=== PATIENT | female | born 1930 | race Caucasian/White ===

== ENCOUNTER 2018-08-10 08:28 | Inpatient (IN) ==
--- NOTE | 2018-08-10 08:59 | PROVIDER DOCUMENTATION ---
HPI-Respiratory General - General Chief Complaint: Shortness of Breath Stated Complaint: SOB Time Seen by Provider: 08/10/18 08:37 Source: patient Allergies/Adverse Reactions: Patient Allergies Allergy/AdvReac Type Severity Reaction Status Date / Time No Known Allergies Allergy Verified 08/10/18 08:35 Home Medications: Home Medication List Medication Instructions Recorded Confirmed Last Taken Type Amlodipine Besylate/Benazepril 1 each PO DAILY 09/10/14 08/10/18 06/06/17 History [Amlodipine-Benazepril 10-40 mg] 1 Fluoxetine [Prozac] 20 mg PO DAILY 09/10/14 08/10/18 06/06/17 History 20 Acetaminophen [Tylenol] 500 mg PO Q6H PRN PRN 06/08/17 08/10/18 06/12/17 17:00 History 500 Cholecalciferol (Vitamin D3) 1,000 unit PO DAILY 06/08/17 06/13/17 06/06/17 History [Vitamin D3] 1000 Carbidopa/Levodopa [Carbidopa-Levo 1 ea PO DAILY 08/10/18 08/10/18 Unknown History 25-100 Tab] Hydrocodone/APAP 5 mg/325 mg 1 ea PO Q8-12H PRN PRN 08/10/18 08/10/18 Unknown History [Laurens-5] Mirabegron [Myrbetriq] 25 mg PO DAILY 08/10/18 08/10/18 Unknown History - History of Present Illness-Resp Nature of Presenting Problem: 88yof present to ER with c/o SOB onset Tuesday. Pt reports she went to see her Parkinson's doctor on Tuesday and noticed she had to stop and lean on the wall a few times. Pt was here 2 weeks ago for fx ribs on the right. Pt reports nonproductive cough. Denies fever. Quality of Pain: reports: aching Timing: reports: intermittent (with movement) Cough Quality/Degree: reports: dry cough Associated Symptoms: reports: cough, short of breath. denies: fever/chills, flu-like symptoms, sore throat, wheezing Review of Systems - Adult - REVIEW OF SYSTEMS - ADULT Constitutional: reports: no symptoms reported. denies: chills, fever Eyes: reports: no symptoms reported Ears, Nose, Mouth & Throat: reports: no symptoms reported Cardiovascular: reports: no symptoms reported. denies: chest pain Respiratory: reports: see HPI, cough, shortness of breath Gastrointestinal: reports: no symptoms reported. denies: abdominal pain, diarrhea, nausea, vomiting Genitourinary: reports: no symptoms reported Musculoskeletal: reports: no symptoms reported Integumentary: reports: no symptoms reported Neurological: reports: no symptoms reported Psychiatric: reports: no symptoms reported Endocrine: reports: no symptoms reported Hematologic/Lymphatic: reports: no symptoms reported Allergic/Immunologic: reports: no symptoms reported All Other Systems: Reviewed and Negative Past History - Adult - PAST MEDICAL HISTORY-ADULT Review of Records: reports: Old Records Reviewed, Nursing Assessment Review, Medications Reviewed Major Childhood Illnesses: reports: denies history Cardiovascular: reports: HTN Respiratory: reports: denies history Gastrointestinal: reports: denies history Obstetrical/Gynecological: reports: denies history Genitourinary: reports: denies history Musculoskeletal: reports: denies history Neurological: reports: Parkinson's Psychiatric: reports: depression Endocrine/Immune: reports: denies history Other Conditions: reports: denies history - PRIOR SURGERIES/PROCEDURES Surgical/Procedure History: reports: orthopedic (extremity), other - PRIOR HOSPITALIZATIONS Prior Hospitalizations: reports: for other non-related - IMMUNIZATION STATUS Childhood Immunizations: See Nurse Assessment Flu Vaccine: See Nurse Assessment - FAMILY HISTORY Family History: reviewed, not pertinent Physical Exam-General - PHYSICAL EXAM-ADULT Initial Vital Signs Reviewed: Yes - CONSTITUTIONAL General Appearance: appears well, alert, no apparent distress - HEAD, EARS, NOSE, MOUTH & THROAT HENMT: moist mucous membranes, normal ENT inspection - NECK Neck: full range of motion, supple, normal inspection - RESPIRATORY Respiratory: no respiratory distress, no accessory muscle use, rhonchi (bilateral), other (tenderness to right lateral ribs) - CARDIOVASCULAR Cardiovascular: no edema, tachycardia - GASTROINTESTINAL (ABDOMEN) Abdominal Exam: normal bowel sounds, non tender, soft - LYMPHATIC Lymphatic: no adenopathy - MUSCULOSKELETAL Back Exam: normal inspection Extremity: normal range of motion, normal inspection - SKIN Integumentary: normal color, warm/dry - NEUROLOGIC Neurologic: grossly normal - PSYCHIATRIC Psych/Mental Status: normal mood/affect, normal thought content, normal thought process - HEART Score HEART Score: History: Slightly Suspicious HEART Score: ECG: Normal HEART Score: Age: > or = 65 Years HEART Score: Risk Factors for Atherosclerotic Disease: 1 or 2 Risk Factors HEART Score: Troponin: < or = Normal Limit Total HEART Score:: 3 Progress - PLAN OF CARE/RESULTS Progress/Plan/Lab Results: Vital Signs - 8 hr 08/10/18 08:31 08/10/18 08:59 Temperature 99.1 F Pulse Rate 116 H 103 H Respiratory Rate 18 23 Blood Pressure 129/55 143/85 O2 Sat by Pulse Oximetry 96 93 L Laboratory Results - last 24 hr 08/10/18 08/10/18 08/10/18 08:55 08:55 08:55 WBC 12.39 H RBC 3.78 L Hgb 10.8 L Hct 33.9 L MCV 89.7 MCH 28.6 MCHC 31.9 L RDW Std Deviation 14.0 Plt Count 221 MPV 10.3 Immature Gran % (Auto) 0.3 Neut % (Auto) 85.3 H Lymph % (Auto) 6.0 L [place] % (Auto) 8.1 Eos % (Auto) 0.1 Baso % (Auto) 0.2 Immature Gran # (Auto) 0.04 Neut # (Auto) 10.58 H Lymph # (Auto) 0.74 L [place] # (Auto) 1.00 H Eos # (Auto) 0.01 Baso # (Auto) 0.02 Segmented Neutrophils 82 H Lymphocytes 12 L Monocytes 6 Anisocytosis 1+ D-Dimer, Quantitative 4.33 H Sodium 137 Potassium 4.2 Chloride 100 Carbon Dioxide 22 L Anion Gap 15 BUN 24 H Creatinine 1.0 H Estimated GFR/1.73 m2 52 BUN/Creatinine Ratio 24 Glucose 145 H Calculated Osmolality 280 Calcium 8.5 L Total Bilirubin 1.20 H AST 27 ALT 35 Alkaline Phosphatase 104 Creatine Kinase 182 H Creatine Kinase Index 1.7 CK-MB (CK-2) 3.01 Troponin T Total Protein 7.3 Albumin 3.9 Globulin 3.0 Albumin/Globulin Ratio 1.0 Plasma Lactate Urine Source Urine Color Urine Clarity Urine pH Ur Specific [place] Urine Protein Urine Ketones Urine Blood Urine Nitrite Urine Bilirubin Urine Urobilinogen Urine Microscopic RBC Urine WBC Urine Microscopic WBC Ur Epithelial Cells Urine Crystals Urine Bacteria Urine Casts Urine Yeast Urine Glucose 08/10/18 08/10/18 08/10/18 08:55 09:20 10:15 WBC RBC Hgb Hct MCV MCH MCHC RDW Std Deviation Plt Count MPV Immature Gran % (Auto) Neut % (Auto) Lymph % (Auto) [place] % (Auto) Eos % (Auto) Baso % (Auto) Immature Gran # (Auto) Neut # (Auto) Lymph # (Auto) [place] # (Auto) Eos # (Auto) Baso # (Auto) Segmented Neutrophils Lymphocytes Monocytes Anisocytosis D-Dimer, Quantitative Sodium Potassium Chloride Carbon Dioxide Anion Gap BUN Creatinine Estimated GFR/1.73 m2 BUN/Creatinine Ratio Glucose Calculated Osmolality Calcium Total Bilirubin AST ALT Alkaline Phosphatase Creatine Kinase Creatine Kinase Index CK-MB (CK-2) Troponin T 0.057 Total Protein Albumin Globulin Albumin/Globulin Ratio Plasma Lactate 1.6 Urine Source CLEAN CATCH Urine Color LAWANDA Urine Clarity SL. CLOUDY A Urine pH 5.0 Ur Specific [place] 1.020 Urine Protein 1+(30 mg/dL) A Urine Ketones 1+(Small) A Urine Blood 1+ A Urine Nitrite NEGATIVE Urine Bilirubin 1+ A Urine Urobilinogen 4 Urine Microscopic RBC <10 Urine WBC 2+ A Urine Microscopic WBC TNTC A Ur Epithelial Cells >10 A Urine Crystals NONE SEEN Urine Bacteria 4+ Urine Casts NONE SEEN Urine Yeast NONE SEEN Urine Glucose NEGATIVE Orders Category Date Time Status Admit - [facility] Routine AdmDCTranf 08/10/18 11:32 Active Activity - Up Ad Lelo ORDERED Care 08/10/18 11:32 Active Vital Signs Order ROUTINE Care 08/10/18 11:32 Active CHEST-2 VIEWS [RAD] Stat Exams 08/10/18 08:[address] ANGIOGRM PULMONARY ARTERIES [CT] Stat Exams 08/10/18 10:16 Completed RIBS BILATERAL W/O PA [RAD] Stat Exams 08/10/18 08:39 Completed BLOOD CULTURE [BLDCUL] Stat Lab 08/10/18 09:51 Ordered CBC WITH DIFF [HEME] Stat Lab 08/10/18 08:55 Completed CK PROFILE [SP CHEM] Stat Lab 08/10/18 08:55 Completed COMPREHENSIVE METABOLIC PANEL [CHEM] Stat Lab 08/10/18 08:55 Completed D-DIMER [COAG] Stat Lab 08/10/18 08:55 Completed LACTATE, PLASMA [CHEM] Stat Lab 08/10/18 10:15 Completed TROPONIN T Stat Lab 08/10/18 08:55 Completed URINE CULTURE [RM] Routine Lab 08/10/18 09:43 Ordered ua [URINALYSIS PL W/POSS RFLX CULT] [URINALYSIS] Stat Lab 08/10/18 09:20 Completed CefTRIAXONE [Rocephin] 1 gm Med 08/10/18 09:50 Discontinued 0.9% Sodium Chloride Inj [Ns] 50 ml IV NOW Oxygen Device Routine Oth 08/10/18 11:32 Active EKG [EKG] Stat Ther 08/10/18 08:41 Draft Transfer/Admit Order [TRANSFER] Routine Transfer 08/10/18 10:53 Completed Result Diagrams: 08/10/18 08:55 08/10/18 08:55 - REASSESSMENT Reassessment #1 Time Reassessed: 10:10 (Pt and family member updated of results and plan for admission. Pt agrees with plan. O2 sat 92% on RA. RN made aware to keep sat > 92%. ) - XRAY 1 XRAY Study: Chest Impression: See EMR Report (There is stable mild cardiomegaly. There has been development of ill-defined bilateral perihilar infiltrates, most prominent on the right. There is a small right pleural effusion. There is no pneumothorax identified. IMPRESSION: Stable mild cardiomegaly. Development of ill-defined bilateral perihilar infiltrates, most prominent on the right. Small right pleural effusion. No evidence of pneumothorax. Electronically signed by [employer]edia 08/10/2018 9:45 AM) 2 XRAY: Right XRAY Study: Ribs Impression: See EMR Report (There are fractures of the lateral right fifth, sixth, and seventh ribs. There is no left rib fracture identified. IMPRESSION: Fractures of lateral right fifth, sixth, and seventh ribs. Electronically signed by [employer] 08/10/2018 9:44 AM) - CONSULTS/PCP/HOSPITALIST Notification #1 *Consult/PCP/Hospitalist*: Hospitalist, Dr Payne Time Discussed: 10:07 Consult Disposition: Admit #2 Consult: Dr Henao Time Discussed: 10:16 (Earlene's patient) Consult Disposition: Admit Departure - Departure Date of Disposition Decision: 08/10/18 Time of Disposition Decision: 10:11 DIAGNOSIS: SOB (shortness of breath), Elevated d-dimer Pneumonia Qualifiers: Pneumonia type: due to unspecified organism Laterality: bilateral Lung location: unspecified part of lung Qualified Code(s): J18.9 - Pneumonia, unspecified organism Disposition: ADMITTED INPATIENT 09 Certified Medical Emergency: Emergent Condition: Fair - Critical Care Note This patient required my direct & personal management of CC.: No Attestation - Physician/ FRANCO Attestation Patient care was provided by Advanced Practice Provider:: Yes Advanced Practice Provider:: Duong Gifford Advanced Practice Provider documentation review:: The Mid-level provider documentation, treatment plan and medical decision making was reviewed by the physician who agrees with all treatment and medical decision making by the MLP. The physician spent face to face time with patient:: No Advanced Practice Provider documentation review:: Supervising physician onsite and consulted in the evaluation and care of this patient. The physician did not have a face to face encounter with the patient.
[2018-08-10 09:23] LABS: ALBUMIN 3.9 g/dL (3.5-5.0); CALCIUM 8.5 mg/dL (8.8-10.2); POTASSIUM 4.2 mmol/L (3.5-5.1); TOTAL BILIRUBIN 1.2 mg/dL (0.20-1.00); TOTAL PROTEIN 7.3 g/dL (6.3-8.3)
[2018-08-10 09:33] LABS: BASO# 0.02 X1000 (0.0-0.2); BASO% 0.2 % (0.0-0.8); EOS# 0.01 X1000 (0.0-0.7); EOS% 0.1 % (0.0-10.0); HEMATOCRIT 33.9 % (37.0-47.0); HEMOGLOBIN 10.8 g/dL (12.0-16.0); IMM GRAN# 0.04 X1000 (0.0-0.04); IMM GRAN% 0.3 % (0.0-0.5); LYMPH# 0.74 X1000 (1.2-3.4); MCH 28.6 PG (27-31); MCHC 31.9 g/dL (33-37); MCV 89.7 FL (81-99); MONO% 8.1 % (1.7-9.3); MPV 10.3 FL (7.4-10.4); NEUT# 10.58 X1000 (1.4-6.5); NEUT% 85.3 % (42.2-75.2); PLT 221 X1000 (130-400); RBC 3.78 XMIL (4.2-5.4); WBC 12.39 X1000 (4.8-10.8)
[2018-08-10 09:34] LABS: LYMPHS 12 % (21-51); MONO 6 % (1-9); SEGS 82 % (42-75)
[2018-08-10 09:35] LABS: ANISOCYTOSIS 1+
[2018-08-10 09:39] LABS: CK INDEX 1.7 (0.0-2.5); CK-MB 3.01 ng/mL (0.0-5.0)
[2018-08-10 09:40] LABS: BILIRUBIN URINE 1+ (NEGATIVE); BLOOD URINE 1+ (NEGATIVE); CLARITY SL. CLOUDY (CLEAR); COLOR AMBER; GLUCOSE URINE NEGATIVE (NEGATIVE); KETONE URINE 1+(Small) mg/dL (NEGATIVE); LEUKOCYTES URINE 2+ (NEGATIVE); NITRITE URINE NEGATIVE (NEGATIVE); PROTEIN URINE 1+(30 mg/dL) mg/dL (NEGATIVE); UROBILINOGEN URINE 4 mg/dL
[2018-08-10 09:42] LABS: URINE EPITHELIAL CELLS >10 /HPF (<10); URINE RBC <10 /HPF (<10); URINE WBC TNTC /HPF (<10)
[2018-08-10 09:43] LABS: URINE BACTERIA 4+ /HFP; URINE CAST NONE SEEN /LPF; URINE CRYSTAL NONE SEEN /HPF; URINE SOURCE CLEAN CATCH; URINE YEAST NONE SEEN /HPF
--- NOTE | 2018-08-10 09:46 | Diag Imaging Result Doc PS360 ---
EXAM: RIBS BILATERAL W/O PA - 08/10/2018 HISTORY: sob TECHNIQUE: Bilateral RIBS six views COMPARISON: 07/20/2018 right RIBS FINDINGS: There are fractures of the lateral right fifth, sixth, and seventh ribs. There is no left rib fracture identified. IMPRESSION: Fractures of lateral right fifth, sixth, and seventh ribs. Electronically signed by Carlos Pride 08/10/2018 9:44 AM
--- NOTE | 2018-08-10 09:48 | Diag Imaging Result Doc PS360 ---
EXAM: CHEST-2 VIEWS - 08/10/2018 HISTORY: sob TECHNIQUE: Chest two views COMPARISON: 07/20/2018 one view chest FINDINGS: There is stable mild cardiomegaly. There has been development of ill-defined bilateral perihilar infiltrates, most prominent on the right. There is a small right pleural effusion. There is no pneumothorax identified. IMPRESSION: Stable mild cardiomegaly. Development of ill-defined bilateral perihilar infiltrates, most prominent on the right. Small right pleural effusion. No evidence of pneumothorax. Electronically signed by Carlos Pride 08/10/2018 9:45 AM
[2018-08-10] MEDS ORDERED: ROCEPHIN 1 GM in NS 50 ML IV ONE (09:50)
--- NOTE | 2018-08-10 10:27 | ED EKG INTERP ---
This chart was entered by Paty Church Scribe, acting as scribe for Olivia Marie MD. EKG Interpretation - EKG Time of EKG reading by physician:: 10:18 EKG Read and Signed by:: Olivia Marie EKG Interpretation (*Must complete 3 of following elements*): Abnormal Rate: 108 Rhythm: sinus arrhythmia Comments: nonspecific ST and T wave abnormality. Attestation - Physician/ FRANCO Attestation Patient care was provided by Advanced Practice Provider:: Yes Advanced Practice Provider:: Duong Gifford Advanced Practice Provider documentation review:: The Mid-level provider documentation, treatment plan and medical decision making was reviewed by the physician who agrees with all treatment and medical decision making by the MLP. The physician spent face to face time with patient:: No Advanced Practice Provider documentation review:: Supervising physician onsite and consulted in the evaluation and care of this patient. The physician did not have a face to face encounter with the patient. This chart was documented by the indicated scribe, (Paty Church Scribe) and accurately reflects the services I performed and decisions made by me, Olivia Marie MD, as attested by the provider's signature.
--- NOTE | 2018-08-10 10:35 | EKG Report ---
Test Performed on : 08/10/2018 10:18:24 AM Test Reason : CP Blood Pressure : / mmHG Vent. Rate : 108 BPM Atrial Rate : 122 BPM P-R Int : 000 ms QRS Dur : 086 ms QT Int : 340 ms P-R-T Axes : 000 014 067 degrees QTc Int : 455 ms Atrial fibrillation. with rapid ventricular response. Nonspecific ST and T wave abnormality Abnormal ECG When compared with ECG of 08-JUN-2017 11:12, Atrial fibrillation. has replaced Junctional rhythm. ST now depressed in Anterior leads Nonspecific T wave abnormality, worse in Anterior leads Unconfirmed Result
--- NOTE | 2018-08-10 11:19 | Diag Imaging Result Doc PS360 ---
EXAM: CT ANGIOGRM PULMONARY ARTERIES - 08/10/2018 HISTORY: sob, elevated ddimer TECHNIQUE: CT angiogram pulmonary arteries with intravenous contrast. Axial, 2-D coronal MIP, and 3-D MIP images are obtained. COMPARISON: None. FINDINGS: There are no filling defects identified in the pulmonary arteries. There is no indication of aortic dissection. There is mild cardiomegaly. There are patchy bilateral infiltrates which are most prominent in the perihilar regions. There is a small right pleural effusion. There is no pneumothorax identified. There are subacute fractures of the anterior lateral right sixth, seventh, and eighth ribs with early healing. There are acute fractures of the lateral right ninth and 10th ribs. IMPRESSION: No evidence of pulmonary embolism. Mild cardiomegaly. Patchy bilateral infiltrates which are most prominent at the perihilar regions. These may relate to pulmonary edema, pneumonia, or possibly pulmonary hemorrhage. Small right pleural effusion. Subacute fractures of anterior lateral right sixth, seventh, and eighth ribs. Acute fractures of lateral right ninth and 10th ribs. No pneumothorax. Electronically signed by Carlos Pride 08/10/2018 11:16 AM
[2018-08-10] MEDS ORDERED: PNEUMOVAX 23 IM ONE (12:26)
[2018-08-10] MEDS ORDERED: TYLENOL PO PRN ×2 (12:43→12:44)
[2018-08-10] MEDS ORDERED: ZOFRAN IV PRN (12:44)
[2018-08-10] MEDS: ZITHROMAX PO SCH (13:31)
--- NOTE | 2018-08-10 19:53 | HISTORY AND PHYSICAL ---
CHIEF COMPLAINT: Shortness of breath. HISTORY OF PRESENT ILLNESS: The patient is an 88-year-old female who has a known history of parkinsonism and frequent falls. She presented to [facility] with increased work of breathing and shortness of breath over the past couple of days. She states that she recently went to see her Parkinson doctor and noted that instead of being able to walk into the office, she had stopped several times and leaned against the wall to be able to breathe. She fell approximately 2 weeks ago and had some rib fractures. She notes that it hurts when she takes a deep breath. REVIEW OF SYSTEMS: The patient denies any current production to her cough. Denies any radiation of her pain. She states she is having some pain with deep breathing. Denies any fevers or chills. The patient has been short of breath, and notes that the shortness of breath worsens with activity. It does improve somewhat when she rests. She denies any dysuria, frequency or urgency. Denies hesitancy, polyuria or polydipsia. Denies any skin rashes, weight loss or weight gain. PAST MEDICAL HISTORY: Hypertension, Parkinson disease, depression. FAMILY HISTORY: No family history of parkinsonism. SOCIAL HISTORY: The patient lives at home, does not smoke or drink. PHYSICAL EXAMINATION: VITAL SIGNS: Temperature 99 degrees, pulse 103 to 116, respiratory rate 18 to 23, BP 143/85. Saturation 98% on room air. GENERAL: The patient is in no current respiratory distress while she is lying in the bed. She is not using accessory muscles. HEENT: Normocephalic. NECK: Supple. CARDIOVASCULAR: Regular rate. CHEST: Decreased breath sounds but equal bilaterally. No current wheezing. ABDOMEN: Soft, nondistended. EXTREMITIES: Moves all extremities. NEUROLOGIC: No changes. ASSESSMENT: 1. Elevated D-dimer at 4.3, with a normal CTA. 2. Elevated bilirubin. 3. Recent rib fractures. 4. Shortness of breath. 5. Parkinson disease. 6. Probable urinary tract infection. 7. Hyperglycemia. 8. Bilateral pneumonia. PLAN: We will place the patient in the hospital, continue her on antibiotics, breathing treatments and oxygen. Restart her home medications. I certainly expect that her recent rib fractures have created difficulty taking deep breaths, which has caused a large portion of her current symptoms and has led to pneumonia. We will continue to follow. Further orders as needed. cc: Juan Carlos Hull MD
[2018-08-11] MEDS ORDERED: BENAZEPRIL PO SCH (09:00)
[2018-08-11] MEDS ORDERED: AMLODIPINE BESYLATE PO SCH (09:00)
[2018-08-11] MEDS ORDERED: [UNRECOGNIZED DRUG - OTHER] PO SCH (09:00)
[2018-08-11] MEDS: SINEMET 25/100 PO SCH (09:08)
[2018-08-11] MEDS: MYRBETRIQ E.R. PO SCH (09:08)
[2018-08-11] MEDS: ZITHROMAX PO SCH (09:08)
[2018-08-11] MEDS: NORVASC PO SCH (09:08)
[2018-08-11] MEDS: PROZAC PO SCH (09:08)
[2018-08-11] MEDS: LOTENSIN PO SCH (09:08)
[2018-08-11] MEDS ORDERED: NORCO-5 PO PRN (09:19)
[2018-08-11] MEDS: ROCEPHIN 1 GM in NS 50 ML IV SCH (11:41)
--- NOTE | 2018-08-11 11:59 | PROGRESS NOTE ---
DATE: 08/11/2018 SUBJECTIVE: Patient notes that overall she is feeling a little bit better although she really has not been out of bed. States she is still having some shortness of breath, but no coughing. No fevers. No chills. Denies any real urinary pain, however, states she has had increased frequency over the past couple of days and thought that her bladder medication just was not working. PHYSICAL EXAMINATION: Vital Signs: Reviewed. She is awake and alert. She is in no current respiratory distress. Temperature 97.8 degrees, pulse 111, respiratory 18, BP 144/85, and saturation 96% on 2 L. General: Patient is very pleasant to talk with. HEENT: Normocephalic. Neck: Supple. Cardiovascular: Regular rate. Chest: Clear. Abdomen: Soft. Extremities: Moves all extremities. Neurologic: No changes. Skin: Warm and dry. No rashes. ASSESSMENT: 1. Urinary tract infection. 2. Parkinson disease. 3. Frequent falls. 4. Bilateral rib fractures. 5. Acute fatigue and shortness of breath likely secondary to her urinary tract infection. PLAN: Continue patient in the hospital. We will continue to follow. Place her on antibiotics and oxygen. Get physical therapy involved. Further orders as needed. cc: Juan Carlos Hull MD
[2018-08-12 07:12] LABS: HEMATOCRIT 31.7 % (37.0-47.0); HEMOGLOBIN 10.1 g/dL (12.0-16.0); MCH 28.6 PG (27-31); MCHC 31.9 g/dL (33-37); MCV 89.8 FL (81-99); MPV 10.5 FL (7.4-10.4); RBC 3.53 XMIL (4.2-5.4); RDW 13.8 % (11.5-14.5); WBC 11.51 X1000 (4.8-10.8)
[2018-08-12 07:36] LABS: AGAP 15; ALBUMIN 3.3 g/dL (3.5-5.0); ALKALINE PHOSPHATASE 103 U/L (32-104); BUN 24 mg/dL (8-22); CALCIUM 8.4 mg/dL (8.8-10.2); CHLORIDE 105 mmol/L (98-107); COSMO 291; CREATININE 0.7 mg/dL (0.5-0.9); ESTIMATED GFR > 60; GLUCOSE 139 mg/dL (70-104); GOT 14 U/L (10-30); GPT 25 U/L (10-36); MAGNESIUM 2.1 mg/dL (1.5-2.7); POTASSIUM 3.9 mmol/L (3.5-5.1); SODIUM 143 mmol/L (136-145); TCO2 23 mmol/L (25-35)
--- NOTE | 2018-08-12 08:38 | PROGRESS NOTE ---
DATE: 08/12/2018 SUBJECTIVE: The patient notes overall she is feeling a little bit better, but she still has not really been out of bed. Still having fatigue and tiredness. She is tired, sitting on the side of the bed. OBJECTIVE: Vital Signs: On physical, vital signs reviewed and stable. She is awake, alert. She is in no current respiratory distress. Temperature 98 degrees, pulse 116, respiratory 20, BP 149/63. General: Patient is in no respiratory distress. HEENT: Normocephalic. Neck: Supple. Cardiovascular: Regular rate. Chest: Clear, nonlabored. No wheezing, no crackles. Abdomen: Soft, nondistended. Extremities: Moves all extremities. ASSESSMENT: 1. Adult generalized failure to thrive with generalized weakness, most likely secondary to urinary tract infection and Parkinson. 2. Parkinson. 3. Urinary tract infection. 4. Elevated bilirubin of undetermined origin. 5. Elevated D-dimer, most likely secondary to her recent rib fracture. 6. Recent rib fracture. 7. Hyperglycemia. 8. Bilateral pneumonia. PLAN: We will continue patient in the hospital, continue antibiotics, oxygen. We will get physical therapy involved. Further orders as needed. cc: Juan Carlos Hull MD
[2018-08-12] MEDS: NORVASC PO SCH (09:53)
[2018-08-12] MEDS: ZITHROMAX PO SCH (09:53)
[2018-08-12] MEDS: MYRBETRIQ E.R. PO SCH (09:53)
[2018-08-12] MEDS: LOTENSIN PO SCH (09:53)
[2018-08-12] MEDS: SINEMET 25/100 PO SCH (09:53)
[2018-08-12] MEDS: PROZAC PO SCH (09:53)
[2018-08-12] MEDS: ROCEPHIN 1 GM in NS 50 ML IV SCH (12:05)
[2018-08-12] MEDS ORDERED: TEARISOL OPH SOLUTION BOTH EYES PRN (15:56)
[2018-08-12] MEDS: DUONEB (A & A) INH PRN (21:29)
[2018-08-13] MEDS: ZITHROMAX PO SCH (08:13)
[2018-08-13] MEDS: LOTENSIN PO SCH (08:13)
[2018-08-13] MEDS: SINEMET 25/100 PO SCH (08:14)
[2018-08-13] MEDS: PROZAC PO SCH (08:14)
[2018-08-13] MEDS: NORVASC PO SCH (08:14)
[2018-08-13] MEDS: MYRBETRIQ E.R. PO SCH (08:14)
[2018-08-13] MEDS: ROCEPHIN 1 GM in NS 50 ML IV SCH (10:34)
[2018-08-13] MEDS: DUONEB (A & A) INH PRN ×4 (12:11→19:34)
--- NOTE | 2018-08-13 23:00 | PROGRESS NOTE ---
DATE: 08/13/2018 SUBJECTIVE: Patient notes that she is feeling better. Still very weak and fatigued. Still having difficulty getting out of bed. Denies any fevers or chills. PHYSICAL EXAMINATION: Vital Signs: Reviewed. Temperature 97.6 degrees, pulse "19," respiratory 20, BP 153/76. General: She is awake, alert. She is in no current respiratory distress. HEENT: Normocephalic. Neck: Supple. Cardiovascular: Regular rate. Chest: Clear. Abdomen: Soft. Extremities: Moves all extremities. Neurologic: No changes. Skin: Warm, dry. No rashes. ASSESSMENT: 1. Nausea vomiting, seems to have resolved. 2. Generalized weakness. 3. Recent rib fractures. 4. Shortness of breath. 5. Bilateral pneumonia. 6. Parkinson disease. 7. Frequent falls. PLAN: We will continue antibiotics. Continue to follow. Get Physical Therapy involved. Hopefully can discharge home when ambulating. cc: Juan Carlos Hull MD
[2018-08-14] MEDS ORDERED: XOPENEX NEB INH PRN (08:06)
[2018-08-14] MEDS: NORVASC PO SCH (08:52)
[2018-08-14] MEDS: ZITHROMAX PO SCH (08:52)
[2018-08-14] MEDS: MYRBETRIQ E.R. PO SCH (08:53)
[2018-08-14] MEDS: LOTENSIN PO SCH (08:53)
[2018-08-14] MEDS: PROZAC PO SCH (08:53)
[2018-08-14] MEDS: SINEMET 25/100 PO SCH (08:53)
[2018-08-14] MEDS: ROCEPHIN 1 GM in NS 50 ML IV SCH (10:41)
--- NOTE | 2018-08-14 19:36 | PROGRESS NOTE ---
DATE: 08/14/2018 SUBJECTIVE: Patient notes she is feeling better. She is still very tired, fatigued, and has not really been out of bed. Physical Therapy hopefully will come today. PHYSICAL EXAMINATION: Vital Signs: Reviewed. Temperature 98 degrees, pulse 101, respiratory rate 20, BP 125/84. General: Patient is awake, alert, currently in no respiratory distress. HEENT: Normocephalic. Neck: Supple. Cardiovascular: Regular rate. Chest: Clear. Abdomen: Soft. Neurologic: No focal changes. ASSESSMENT: 1. Frequent falls. 2. Pneumonia, improved. 3. Elevated D-dimer. 4. Shortness of breath. 5. Others. PLAN: Will continue the patient in the hospital, continue physical therapy, and hopefully home if she can ambulate. cc: Juan Carlos Hull MD
[2018-08-15 07:54] VITALS: BP 142/76
[2018-08-15] MEDS: MYRBETRIQ E.R. PO SCH (09:28)
[2018-08-15] MEDS: NORVASC PO SCH (09:28)
[2018-08-15] MEDS: ZITHROMAX PO SCH (09:28)
[2018-08-15] MEDS: SINEMET 25/100 PO SCH (09:29)
[2018-08-15] MEDS: LOTENSIN PO SCH (09:29)
[2018-08-15] MEDS: PROZAC PO SCH (09:29)
--- NOTE | 2018-08-16 05:42 | DISCHARGE SUMMARY ---
ADMISSION DATE: 08/11/2018 DISCHARGE DATE: 08/15/2018 DISCHARGE DIAGNOSES: 1. Pneumonia, improved. 2. Elevated D-dimer with negative workup. 3. Shortness of breath, improved. 4. Frequent falls. 5. Parkinson's likely causing her frequent falls. CONSULTATIONS: None. PROCEDURES: None. BRIEF HOSPITAL COURSE: The patient is an 88-year-old female who was admitted to the hospital, treated in the usual fashion, placed on antibiotics due to her frequent falls. Thankfully she had an uneventful hospital course. On discharge she is awake and alert. She is in no distress and overall is feeling better. The patient's hospital course was prolonged secondary to her generalized weakness and frequent falls. On discharge she is able to ambulate with minimal assistance. The patient declined rehabilitation. DISPOSITION: The patient will be discharged home with home health, thus she has declined rehab. She will follow up in the office in 1 week to recheck the chest x-ray. We will continue antibiotics at home as well as physical therapy. cc: Juan Carlos Hull MD
== END 2018-08-15 10:15 | disposition home health service (06) | DRG 871 ==
LOC: P.MEDSURG 08:28 → P.ED 08:28 → P.MEDSURG 11:25
PROVIDERS: ADMIT Family Medicine; ATTEND Family Medicine
CPT/HCPCS: 71020; 71046; 71110; 71275; 80053; 81001; 82550; 82553; 83605; 83735; 84443; 84484; 85025; 85027; 85379; 87040; 87088; 93005; 94640; 94761; 94799; 96374; 97162; 97530; 99285; A9270; J0696; Q9967

== ENCOUNTER 2019-02-20 13:43 | Inpatient (IN) ==
--- NOTE | 2019-02-20 14:08 | EKG Report ---
Test Performed on : 02/20/2019 2:02:57 PM Test Reason : AMS Blood Pressure : / mmHG Vent. Rate : 091 BPM Atrial Rate : 091 BPM P-R Int : 172 ms QRS Dur : 092 ms QT Int : 384 ms P-R-T Axes : 086 000 047 degrees QTc Int : 472 ms Sinus rhythm. with occasional premature ventricular complexes. and fusion complexes Incomplete right bundle branch block Borderline ECG When compared with ECG of 10-AUG-2018 10:18, Sinus rhythm. has replaced Atrial fibrillation. Nonspecific T wave abnormality no longer evident in Anterior leads Unconfirmed Result
[2019-02-20 14:17] LABS: INR 1.2; PROTIME 15.4 Seconds (11.0-16.0)
[2019-02-20 14:18] LABS: PTT 27.7 Seconds (22.3-41.8)
[2019-02-20 14:20] LABS: BASO# 0.04 X1000 (0.0-0.2); BASO% 0.2 % (0.0-0.8); EOS% 0.6 % (0.0-10.0); HEMOGLOBIN 12.4 g/dL (12.0-16.0); IMM GRAN# 0.03 X1000 (0.0-0.04); IMM GRAN% 0.2 % (0.0-0.5); LYMPH# 1.02 X1000 (1.2-3.4); MCH 29.6 PG (27-31); MCHC 32.6 g/dL (33-37); MCV 90.7 FL (81-99); MONO% 4.7 % (1.7-9.3); MPV 10.1 FL (7.4-10.4); NEUT% 88.3 % (42.2-75.2); PLT 223 X1000 (130-400); RBC 4.19 XMIL (4.2-5.4); RDW 13.7 % (11.5-14.5); WBC 16.89 X1000 (4.8-10.8)
--- NOTE | 2019-02-20 14:29 | Diag Imaging Result Doc PS360 ---
EXAM: CT HEAD W/O CONTRAST INDICATION: Head injury TECHNIQUE: This exam was performed using automated exposure control, adjustment of mA or kV according to patient size, and/or use of iterative reconstruction technique. COMPARISON: 09/14/2018 FINDINGS: There is patchy low attenuation in the periventricular and subcortical white matter suggesting microangiopathy, stable. There is no definite acute infarct given the limited sensitivity of CT versus MRI. There is no discrete intracranial mass, mass effect, or intracranial hemorrhage. The surrounding soft tissues and bony structures are essentially unremarkable. The calvaria is intact. IMPRESSION: Stable chronic appearing white matter changes but no definite acute intracranial pathology. Electronically signed by Connor Hall 02/20/2019 2:27 PM
--- NOTE | 2019-02-20 14:34 | Diag Imaging Result Doc PS360 ---
CHEST-PORTABLE - 02/20/2019 INDICATION: AMS COMPARISON: 08/10/2018 FINDINGS: Stable cardiomegaly and pulmonary vascular congestion. There are some patchy infiltrates or areas of atelectasis in the lung bases. No definite pulmonary edema. No pneumothorax or significant pleural effusion. IMPRESSION: Nonspecific findings. Electronically signed by Jr Landers 02/20/2019 2:32 PM
--- NOTE | 2019-02-20 14:35 | Diag Imaging Result Doc PS360 ---
LUMBAR SPINE 2-VIEWS - 02/20/2019 INDICATION: FALL/BACK PAIN TECHNIQUE: COMPARISON: None FINDINGS: Alignment is anatomic. There appears to be disc space fusion at L5-S1. No fracture or subluxation. Vertebral body heights are overall preserved. There is advanced multilevel disc degeneration, diffusely throughout the thoracolumbar spine. There is significant vascular disease with calcification of the aorta and its branches. No visible aneurysm. IMPRESSION: Advanced spondylosis. Electronically signed by Jr Landers 02/20/2019 2:33 PM
[2019-02-20 14:52] LABS: URINE SOURCE CLEAN CATCH
[2019-02-20 15:02] LABS: BILIRUBIN URINE NEGATIVE (NEGATIVE); BLOOD URINE MODERATE (NEGATIVE); COLOR YELLOW; GLUCOSE URINE NEGATIVE (NEGATIVE); KETONE URINE 40 mg/dL (NEGATIVE); LEUKOCYTES URINE LARGE (NEGATIVE); NITRITE URINE NEGATIVE (NEGATIVE); PH URINE 6.5; PROTEIN URINE 30 mg/dL (NEGATIVE); SP GRAVITY URINE 1.018; TURBIDITY URINE HAZY (CLEAR); UROBILINOGEN URINE NORMAL (NORMAL)
[2019-02-20 15:04] LABS: UR EPITHELIAL CELLS <10 /HPF (<10); URINE BACTERIA 1+ /HPF; URINE RBC <10 /HPF (<10); URINE WBC TNTC /HPF (<10)
[2019-02-20 15:18] LABS: ALB/GLOB RATIO 1.7; ALBUMIN 4.7 g/dL (3.5-5.0); CALCIUM 9.3 mg/dL (8.8-10.2); POTASSIUM 3.8 mmol/L (3.5-5.1); TOTAL BILIRUBIN 1.81 mg/dL (0.20-1.00); TOTAL PROTEIN 7.5 g/dL (6.3-8.3)
[2019-02-20] MEDS ORDERED: ROCEPHIN 1 GM in NS 50 ML IV ONE (15:37)
--- NOTE | 2019-02-20 15:43 | PROVIDER DOCUMENTATION ---
HPI-General Adult - General Chief Complaint: Altered Mental Status Stated Complaint: FELL 4 X SINCE TUESDAY Time Seen by Provider: 02/20/19 15:16 Source: patient, family (son at bedside) Allergies/Adverse Reactions: Patient Allergies Allergy/AdvReac Type Severity Reaction Status Date / Time No Known Allergies Allergy Verified 02/20/19 15:30 Home Medications: Home Medication List Medication Instructions Recorded Confirmed Last Taken Type Amlodipine Besylate/Benazepril 1 each PO DAILY 09/10/14 02/20/19 09/22/18 05:00 History [Amlodipine-Benazepril 10-40 mg] Carbidopa/Levodopa [Carbidopa-Levo 1 ea PO DAILY 08/10/18 02/20/19 09/21/18 08:00 History 25-100 Tab] Hydrocodone/APAP 5 mg/325 mg 1 ea PO Q6H PRN PRN #10 tab 09/14/18 02/20/19 08:00 Rx [[place]-5] Aspirin 81 mg PO DAILY 09/20/18 02/20/19 09/19/18 08:00 History Oxybutynin Chloride 5 mg PO DAILY 02/20/19 02/20/19 Unknown History - History of Present Illness -Gen Adult Nature of Presenting Problems: 88 YO F pmh for parkinson's brought in by son for recurrent falls, 4x in 3 days. pt states she hit her head when she fell on yesterday. She was laying in the puddle in the street until [employer] came to her home. On today, she had fallen again until [employer] came to her house again. She currently lives alone. Her son states he thinks she has a UTI. Pt without dysuria, but states she has urinary frequency, which is not abnormal for her. She has pain on her back and with her knees. She denies any other complaints. She states her Parkinson's is what makes her fall. She denies any dizziness or LOC. Son states pt was having hallucinations of family members this morning. Location of Pain/Injury: reports: head, back, lower extremity Pain Radiation: reports: no radiation Quality of Pain: reports: aching Severity: reports: mild Onset/Duration: reports: 3 days ago Timing: reports: still present, improving Associated Symptoms: denies: dizziness, nausea, rash, seizure Similar Symptoms Previously?: Yes Recently seen or treated by another doctor?: No Review of Systems - Adult - REVIEW OF SYSTEMS - ADULT Constitutional: denies: chills, fever Eyes: reports: no symptoms reported Ears, Nose, Mouth & Throat: reports: no symptoms reported Cardiovascular: denies: chest pain, edema Respiratory: reports: no symptoms reported Gastrointestinal: reports: no symptoms reported Genitourinary: reports: see HPI, frequency. denies: dysuria Musculoskeletal: reports: back pain, joint pain Integumentary: reports: no symptoms reported Neurological: reports: dizziness/vertigo. denies: syncope Past History - Adult - PAST MEDICAL HISTORY-ADULT Review of Records: reports: Old Records Reviewed, Medications Reviewed Major Childhood Illnesses: reports: denies history Cardiovascular: reports: HTN Respiratory: reports: denies history Gastrointestinal: reports: denies history Obstetrical/Gynecological: reports: denies history Genitourinary: reports: denies history Musculoskeletal: reports: denies history Neurological: reports: Parkinson's Psychiatric: reports: depression Endocrine/Immune: reports: denies history Other Conditions: reports: denies history - PRIOR SURGERIES/PROCEDURES Surgical/Procedure History: reports: orthopedic (extremity), other - PRIOR HOSPITALIZATIONS Prior Hospitalizations: reports: for other non-related - IMMUNIZATION STATUS Childhood Immunizations: See Nurse Assessment Flu Vaccine: See Nurse Assessment - FAMILY HISTORY Family History: reviewed, not pertinent - SOCIAL HISTORY Smoking: non-smoker Substance Use: denies Living Situation: alone Physical Exam-General - PHYSICAL EXAM-ADULT Initial Vital Signs Reviewed: Yes - CONSTITUTIONAL General Appearance: appears well, alert, no apparent distress - HEAD, EARS, NOSE, MOUTH & THROAT HENMT: normocephalic/atraumatic, moist mucous membranes - NECK Neck: non-tender, full range of motion, supple, normal inspection - RESPIRATORY Respiratory: lungs clear, normal breath sounds - CARDIOVASCULAR Cardiovascular: regular rate, rhythm - GASTROINTESTINAL (ABDOMEN) Abdominal Exam: non tender, soft. negative: distended, guarding, rebound - MUSCULOSKELETAL Back Exam: ecchymosis (to right thoracic region) Extremity: normal range of motion, pelvis stable. negative: deformity - NEUROLOGIC Neurologic: grossly normal - PSYCHIATRIC Psych/Mental Status: normal mood/affect, normal thought content, oriented x 3 Progress - PLAN OF CARE/RESULTS Progress/Plan/Lab Results: Vital Signs - 8 hr 02/20/19 13:48 Temperature 98.4 F Pulse Rate 92 H Respiratory Rate 18 Blood Pressure 178/72 O2 Sat by Pulse Oximetry 94 L Laboratory Results - last 24 hr 02/20/19 02/20/19 02/20/19 13:56 13:56 13:56 WBC 16.89 H RBC 4.19 L Hgb 12.4 Hct 38.0 MCV 90.7 MCH 29.6 MCHC 32.6 L RDW Std Deviation 13.7 Plt Count 223 MPV 10.1 Immature Gran % (Auto) 0.2 Neut % (Auto) 88.3 H Lymph % (Auto) 6.0 L Cook % (Auto) 4.7 Eos % (Auto) 0.6 Baso % (Auto) 0.2 Immature Gran # (Auto) 0.03 Neut # (Auto) 14.90 H Lymph # (Auto) 1.02 L Cook # (Auto) 0.80 H Eos # (Auto) 0.10 Baso # (Auto) 0.04 PT INR PTT (Actin FS) Sodium 142 Potassium 3.8 Chloride 102 Carbon Dioxide 21 L Anion Gap 19 BUN 22 Creatinine 1.0 H Estimated GFR/1.73 m2 52 BUN/Creatinine Ratio 22 Glucose 110 H POC Glucose Calculated Osmolality 287 Calcium 9.3 Total Bilirubin 1.81 H AST 50 H ALT 29 Alkaline Phosphatase 89 Creatine Kinase 1857 H Troponin T Total Protein 7.5 Albumin 4.7 Globulin 2.8 Albumin/Globulin Ratio 1.7 Plasma Lactate Urine Source Urine Color Urine Turbidity Urine pH Ur Specific [place] Urine Protein Ur Glucose (Stick) Ur Ketones (Stick) Urine Blood Urine Nitrite Urine Bilirubin Urobilinogen Dipstick Urine Leukocytes Urine WBC (Auto) Urine RBC (Auto) U Epithel Cells (Auto) Urine Bacteria (Auto) Plasma/Serum Ethyl Alc 02/20/19 02/20/19 02/20/19 13:56 13:56 13:56 WBC RBC Hgb Hct MCV MCH MCHC RDW Std Deviation Plt Count MPV Immature Gran % (Auto) Neut % (Auto) Lymph % (Auto) Cook % (Auto) Eos % (Auto) Baso % (Auto) Immature Gran # (Auto) Neut # (Auto) Lymph # (Auto) Cook # (Auto) Eos # (Auto) Baso # (Auto) PT 15.4 INR 1.20 PTT (Actin FS) 27.7 Sodium Potassium Chloride Carbon Dioxide Anion Gap BUN Creatinine Estimated GFR/1.73 m2 BUN/Creatinine Ratio Glucose POC Glucose Calculated Osmolality Calcium Total Bilirubin AST ALT Alkaline Phosphatase Creatine Kinase Troponin T 0.033 Total Protein Albumin Globulin Albumin/Globulin Ratio Plasma Lactate 2.2 Urine Source Urine Color Urine Turbidity Urine pH Ur Specific [place] Urine Protein Ur Glucose (Stick) Ur Ketones (Stick) Urine Blood Urine Nitrite Urine Bilirubin Urobilinogen Dipstick Urine Leukocytes Urine WBC (Auto) Urine RBC (Auto) U Epithel Cells (Auto) Urine Bacteria (Auto) Plasma/Serum Ethyl Alc 02/20/19 02/20/19 13:58 14:44 WBC RBC Hgb Hct MCV MCH MCHC RDW Std Deviation Plt Count MPV Immature Gran % (Auto) Neut % (Auto) Lymph % (Auto) Cook % (Auto) Eos % (Auto) Baso % (Auto) Immature Gran # (Auto) Neut # (Auto) Lymph # (Auto) Cook # (Auto) Eos # (Auto) Baso # (Auto) PT INR PTT (Actin FS) Sodium Potassium Chloride Carbon Dioxide Anion Gap BUN Creatinine Estimated GFR/1.73 m2 BUN/Creatinine Ratio Glucose POC Glucose 99 Calculated Osmolality Calcium Total Bilirubin AST ALT Alkaline Phosphatase Creatine Kinase Troponin T Total Protein Albumin Globulin Albumin/Globulin Ratio Plasma Lactate Urine Source CLEAN CATCH Urine Color YELLOW Urine Turbidity HAZY Urine pH 6.5 Ur Specific [place] 1.018 Urine Protein 30 A Ur Glucose (Stick) NEGATIVE Ur Ketones (Stick) 40 A Urine Blood MODERATE A Urine Nitrite NEGATIVE Urine Bilirubin NEGATIVE Urobilinogen Dipstick NORMAL Urine Leukocytes LARGE A Urine WBC (Auto) TNTC A Urine RBC (Auto) <10 U Epithel Cells (Auto) <10 Urine Bacteria (Auto) 1+ Plasma/Serum Ethyl Alc Orders Category Date Time Status Cardiac Monitoring DIRECTED Care 02/20/19 13:57 Active Finger Stick Blood Sugar (ED) DIRECTED Care 02/20/19 13:57 Completed Oxygen Therapy- ED Nursing DIRECTED Care 02/20/19 13:57 Active Saline Loc NOW Care 02/20/19 13:57 Active CHEST-PORTABLE [RAD] Stat Exams 02/20/19 13:[address] HEAD W/O CONTRAST [CT] Stat Exams 02/20/19 13:57 Completed LUMBAR SPINE 2-VIEWS [RAD] Stat Exams 02/20/19 14:01 Completed ALCOHOL BLOOD Stat Lab 02/20/19 13:56 Completed CBC WITH ELECTRONIC DIFF [HEME] Stat Lab 02/20/19 13:56 Completed CK PROFILE [SP CHEM] Stat Lab 02/20/19 13:56 Results COMPREHENSIVE METABOLIC PANEL [CHEM] Stat Lab 02/20/19 13:56 Results LACTATE, PLASMA [CHEM] Stat Lab 02/20/19 13:56 Completed PROTIME WITH INR [COAG] Stat Lab 02/20/19 13:56 Completed PTT [COAG] Stat Lab 02/20/19 13:56 Completed TROPONIN T Stat Lab 02/20/19 13:56 Completed URINALYSIS [URINALYSIS] Stat Lab 02/20/19 14:44 Completed CefTRIAXONE [Rocephin] 1 gm Med 02/20/19 15:37 Active 0.9% Sodium Chloride Inj [Ns] 50 ml IV NOW Altered Mental Status Stat Oth 02/20/19 13:56 Ordered EKG [EKG] Stat Ther 02/20/19 13:57 Draft Result Diagrams: 02/20/19 13:56 02/20/19 13:56 - REASSESSMENT Reassessment #1 Time Reassessed: 16:00 Status: unchanged (labs reviewed. Pt doing well. UA positive for infection. rocephin ordered. elevated CK) - EKG 1 Time of EKG reading by physician:: 14:05 EKG Read and Signed by:: Brtet Myrick EKG Interpretation (*Must complete 3 of following elements*): Abnormal Rate: 91 Rhythm: sinus QRS: RBB (incomplete) ME Interval: normal (PVCs) Prior EKG Comparison: changes noted (improved from May 2017 and July 2018) - XRAY 1 XRAY Study: Chest Impression: See EMR Report (COMPARISON: 08/10/2018 FINDINGS: Stable car diomegaly and pulmonary vascular congestion. There are some patchy infiltrates or areas of atelectasis in the lung bases. No definite pulmonary edema. No pneumothorax or significant pleural effusion. IMPRESSION: Nonspecific findings. Electronically signed by Jr Landers 02/20/2019 2:32 PM) 2 XRAY Study: Lumbar Spine Impression: See EMR Report (COMPARISON: None FINDINGS: Alignment is anatomic. There appears to be disc space fusion at L5-S1. No fracture or subluxation. Vertebral body heights are overall preserved. There is advanced multilevel disc degeneration, diffusely throughout the thoracolumbar spine. There is significant vascular disease with calcification of the aorta and its branches. No visible aneurysm. IMPRESSION: Advanced spondylosis. Electronically signed by Jr Landers 02/20/2019 2:33 PM 02/20/19 1433) - CT/MRI 1 CT Study: Head Impression: See EMR Report (INDICATION: Head injury TECHNIQUE: This exam was performed using automated exposure control, adjustment of mA or kV according to patient size, and/or use of iterative reconstruction technique. COMPARISON: 09/14/2018 FINDINGS: There is patchy low attenuation in the periventricular and subcortical white matter suggesting microangiopathy, stable. There is no de finite acute infarct given the limited sensitivity of CT versus MRI. There is no discrete intracranial mass, mass effect, or intracranial hemorrhage. The surrounding soft tissues and bony structures are essentially unremarkable. The calvaria is intact. IMPRESSION: Stable chronic appearing white matter changes but no definite acute intracranial pathology. Electronically signed by Connor Hall 02/20/2019 2:27 PM) - CONSULTS/PCP/HOSPITALIST Notification #1 *Consult/PCP/Hospitalist*: Spoke with Alyse Time Discussed: 16:30 Consult Disposition: Will see in ED, Admit Departure - Departure Date of Disposition Decision: 02/20/19 Time of Disposition Decision: 16:55 DIAGNOSIS: Urinary tract infection, Frequent falls, Parkinson disease Disposition: ADMITTED INPATIENT 09 Certified Medical Emergency: Emergent Condition: Stable Referrals and Follow-Ups: Juan Carlos Hull MD [Primary Care Provider] - - Critical Care Note This patient required my direct & personal management of CC.: No Attestation - Physician/ FRANCO Attestation The physician spent face to face time with patient:: Yes Advanced Practice Provider documentation review:: Supervising physician onsite and consulted in the evaluation and care of this patient. The physician did have a face to face encounter with the patient.
[2019-02-20 15:51] LABS: CK INDEX 0.7 (0.0-2.5); CK-MB 13.53 ng/mL (0.0-5.0)
[2019-02-20] MEDS ORDERED: ZOFRAN IV PRN (17:10)
[2019-02-20] MEDS ORDERED: TYLENOL PO PRN (17:10)
[2019-02-20] MEDS ORDERED: NS 1,000 ML IV SCH (17:15)
[2019-02-20 20:20] LABS: URINE SOURCE CLEAN CATCH
[2019-02-20 20:25] LABS: BILIRUBIN URINE NEGATIVE (NEGATIVE); BLOOD URINE SMALL (NEGATIVE); COLOR YELLOW; GLUCOSE URINE NEGATIVE (NEGATIVE); KETONE URINE 20 mg/dL (NEGATIVE); LEUKOCYTES URINE TRACE (NEGATIVE); NITRITE URINE NEGATIVE (NEGATIVE); PROTEIN URINE 30 mg/dL (NEGATIVE); SP GRAVITY URINE 1.021; TURBIDITY URINE CLEAR (CLEAR); UROBILINOGEN URINE NORMAL (NORMAL)
[2019-02-20 20:26] LABS: UR EPITHELIAL CELLS <10 /HPF (<10); URINE BACTERIA NEGATIVE /HPF; URINE RBC <10 /HPF (<10); URINE WBC <10 /HPF (<10)
--- NOTE | 2019-02-20 21:00 | HISTORY AND PHYSICAL ---
PRIMARY CARE PROVIDER: Dr. Hull. NEUROLOGIST: Dr. Cullen is the neurologist who takes care of her Parkinson's. CHIEF COMPLAINT: Frequent falls, urinary frequency. HISTORY OF PRESENT ILLNESS: Ms. Farida Veloz is a an 88-year-old female who tends to have very frequent falls secondary to her Parkinson's. She states that she has felt more weak over the past month and since Tuesday, which is only 4 days ago, she has had 4 falls with 2 of them being today. Apparently, yesterday she fell when walking outside. She was found by [employer] and the patient states that she was on the ground for at least 2-1/2 hours. She has an elevated CK level. Her urine sample reveals that she has urinary tract infection, of which she has complained of urinary frequency, but no other complaints on that, and so we will admit her for further workup and evaluation. We will need to get her stronger. She lives at home alone and does not need to be at home alone unless she can keep from falling so frequently, so will need to order physical therapy and get her stronger, and flush her CKs and further evaluate and treat. PAST MEDICAL HISTORY: 1. Hypertension. 2. Parkinson disease. 3. Depression. 4. Frequent falls. 5. Frequent urinary tract infections. 6. Vulvar cancer and removal. SURGICAL HISTORY: 1. Vulva removed. 2. Bilateral wrist surgery. 3. Neck surgery x2. 4. Right shoulder fracture surgery. 5. Bilateral cataracts. SOCIAL HISTORY: Denies tobacco, alcohol or illicit drug use. Lives at home alone. Uses a walking stick, a cane, and a walker. She also has a power wheelchair, but does not really use that very often. Family does come to visit her. She has [employer] that brings her food. FAMILY HISTORY: Mother: No medical history. Father had heart disease. ALLERGIES: No known drug allergies HOME MEDICATIONS: 1. Amlodipine/benazepril 1 tablet p.o. daily. 2. Aspirin 81 mg p.o. daily. 3. Carbidopa/levodopa 25/100 one tablet p.o. daily. 4. Oxybutynin 5 mg p.o. daily. REVIEW OF SYSTEMS: A 14 point review of systems is complete and all are negative except for those mentioned above in HPI. PHYSICAL EXAMINATION: VITAL SIGNS: Temperature 98.5 degrees, heart rate 86, respiratory rate 16, blood pressure 131/50, O2 saturation 95% on room air. She is 5 feet 0 inches tall, 120 pounds. BMI is 23.4. GENERAL: Ms. Farida Veloz is an 88-year-old female. She is in no acute distress. She is able answer questions appropriately. HEENT: Atraumatic, normocephalic. Pupils equal, round, and reactive to light. Extraocular movements intact. Mucous membranes are dry. NECK: Trachea midline. CARDIOVASCULAR: S1, S2. Regular rate and rhythm. No rubs, gallops, murmurs. No lower extremity edema. +2 dorsalis and radial pulses. Negative JVD or carotid bruits. PULMONARY: Clear to auscultation. Bilateral breath sounds. No accessory muscle use or work of breathing noted. GI: Soft, nontender, nondistended. Positive bowel sounds x4. EXTREMITIES: Decreased range of motion. Strength 4/5, but equal. NEUROLOGIC: Oriented x3. Follows commands. Sensory is intact. SKIN: Warm, dry, intact, except she has multiple areas and degrees of bruising from the frequent falls she has been having, and some Band-Aids on her wrists. LABORATORY DATA: White blood cells 16,000, hemoglobin 12, hematocrit 38, platelet count 223. INR 1.20, PTT is 27.7. Sodium 142, potassium 3.8, BUN 22, creatinine is 1.0, glucose 110, calcium 9.3, bilirubin is 1.81. AST 50, ALT 29, CK 1857. Albumin is 4.7. Serum lactate 2.2, then down to 1.8. Urinalysis: 30 protein, 40 ketones, moderate blood, large leukocytes, too numerous to count white blood cells, 1+ bacteria. ASSESSMENT AND PLAN: 1. Frequent falls, secondary to Parkinson's and generalized weakness that is progressive. She will need physical therapy. She has been having some decreased muscle use and feeling weaker over the last month. 2. Mild rhabdomyolysis from her fall yesterday. She ended up being out in the rain for about 2- 1/2 hours before [employer] found her. We will give her some intravenous fluid hydration and do serial CKs on a daily basis. 3. Urinary tract infection. Started on ceftriaxone. 4. Hypertension. Continue amlodipine/benazepril. 5. Parkinson's. Continue Sinemet and the carbidopa/levodopa. 6. Deep venous thrombosis prophylaxis with sequential compression devices. 7. Urinary frequency. She is already on Ditropan for that and we will continue it. Dictated by CAIO Mora for Diogenes Horne MD cc: CAIO Mora agree with the above. the following is my own face to face assessment. patient found on the floor. has had frequent falls and progressive weakness. likely mostly related to her parkinsons but some dehydration on this occasion as well. will hydrate and monitor. possible UTI so will start on rocephin pending culture data. will see how she does with PT after IVF but suspect she will need to go to rehab. STEPHANIE
[2019-02-21 07:23] LABS: BASO# 0.03 X1000 (0.0-0.2); BASO% 0.3 % (0.0-0.8); EOS# 0.78 X1000 (0.0-0.7); EOS% 6.6 % (0.0-10.0); HEMATOCRIT 36.3 % (37.0-47.0); HEMOGLOBIN 11.5 g/dL (12.0-16.0); IMM GRAN# 0.05 X1000 (0.0-0.04); IMM GRAN% 0.4 % (0.0-0.5); LYMPH# 0.85 X1000 (1.2-3.4); LYMPH% 7.2 % (20.5-51.1); MCH 29.3 PG (27-31); MCHC 31.7 g/dL (33-37); MCV 92.4 FL (81-99); MONO# 0.62 X1000 (0.11-0.59); MONO% 5.2 % (1.7-9.3); MPV 11.1 FL (7.4-10.4); NEUT# 9.48 X1000 (1.4-6.5); NEUT% 80.3 % (42.2-75.2); PLT 170 X1000 (130-400); RBC 3.93 XMIL (4.2-5.4); RDW 13.9 % (11.5-14.5); WBC 11.81 X1000 (4.8-10.8)
[2019-02-21 07:31] LABS: INR 1.21; PROTIME 15.5 Seconds (11.0-16.0)
[2019-02-21 07:32] LABS: PTT 30.2 Seconds (22.3-41.8)
[2019-02-21 07:40] LABS: AGAP 13; ALB/GLOB RATIO 1.1; ALBUMIN 3.5 g/dL (3.5-5.0); ALKALINE PHOSPHATASE 76 U/L (32-104); BUN 19 mg/dL (8-22); CALCIUM 8.7 mg/dL (8.8-10.2); CHLORIDE 106 mmol/L (98-107); CK TOTAL 992 U/L (24-173); COSMO 285; CREATININE 0.8 mg/dL (0.5-0.9); ESTIMATED GFR > 60; GLUCOSE 122 mg/dL (70-104); GOT 33 U/L (10-30); GPT 21 U/L (10-36); MAGNESIUM 1.7 mg/dL (1.5-2.7); POTASSIUM 3.6 mmol/L (3.5-5.1); SODIUM 141 mmol/L (136-145); TCO2 22 mmol/L (25-35); TOTAL BILIRUBIN 0.92 mg/dL (0.20-1.00); TOTAL PROTEIN 6.6 g/dL (6.3-8.3)
[2019-02-21] MEDS ORDERED: SINEMET 25/100 PO SCH (09:00)
[2019-02-21] MEDS: ROCEPHIN 1 GM in NS 50 ML IV SCH (09:42)
[2019-02-21] MEDS: ASPIRIN PO SCH (09:43)
[2019-02-21] MEDS: SINEMET 25/100 PO SCH ×3 (09:43→17:45)
[2019-02-21] MEDS: DITROPAN PO SCH (09:43)
[2019-02-21] MEDS: LOTREL 5/10 MG PO SCH ×2 (09:43→10:02)
[2019-02-21] MEDS: DUONEB (A & A) INH SCH ×3 (11:33→21:51)
--- NOTE | 2019-02-21 12:02 | Diag Imaging Result Doc PS360 ---
EXAM: CHEST-PORTABLE INDICATION: dyspnea, wheezing, rhonchi. TECHNIQUE: One view COMPARISON: 02/20/2019 FINDINGS: Mild pulmonary venous congestion and minimal atelectasis and/or mild infiltrate at the lower lung zones are essentially stable. No new consolidation is identified. Cardiac silhouette is stable. IMPRESSION: Stable chest. Electronically signed by Connor Hall 02/21/2019 12:00 PM
[2019-02-21] MEDS: NS 1,000 ML IV SCH (13:55)
--- NOTE | 2019-02-21 17:47 | PROGRESS NOTE ---
DATE: 02/21/2019 INTERVAL HISTORY: The patient reports muscle stiffness, tenderness, pain, but the mental status is somewhat improved. The patient is complaining also of some mild dyspnea which started this morning, some slight nonproductive cough. Denies fever, chills, nausea, or vomiting. Afebrile and no other acute events overnight. REVIEW OF SYSTEMS: A 12-point review of systems negative, except as per interval history. LABORATORY: WBC 11.8, hemoglobin 11.5, hematocrit 36.3, platelets 170,000. Basic metabolic panel unremarkable aside from bicarbonate 22, glucose 122, bilirubin 0.92, AST 33, ALT 21, alkaline phosphatase 992. BNP 3290. IMAGING: Repeat chest x-ray this morning, essentially unchanged from previous. Minimal atelectasis and very mild pulmonary venous congestion without any new consolidation. VITALS: Temperature max 99.2, pulse 86, respirations 20, blood pressure 130/52, O2 saturation 94% on room air. PHYSICAL EXAMINATION: General: No acute distress. Chronically ill appearing. Vitals: As above. HEENT: Normocephalic, atraumatic. Less dry mucous membranes. No cervical adenopathy. Cardiovascular: Regular rate and rhythm. Pulmonary: Largely clear to auscultation. Slightly increased respiratory rate. Very slight bibasilar crackles. Abdomen: Soft, nontender, nondistended. Bowel sounds positive. Extremities: Peripheral pulses intact. Trace edema bilaterally. Neurologic: Cranial nerves grossly intact. Mild global weakness, but no focal deficits identified. Psychiatric: Normal mood and affect. Currently, oriented x3, although appears mildly confused at times. Cooperative and response is largely appropriate. Skin: Multiple bruises, stable. No new lesions or rashes identified. ASSESSMENT AND PLAN: 1. Mild rhabdomyolysis, dehydration. The patient was reportedly down on the floor for an unknown length of time before she was found. CK improving with IV fluids overnight, but given some mild dyspnea and elevated BNP, we are cutting back her IV fluids. Continue to monitor. 2. Urinary tract infection. On Rocephin. Had leukocytosis on admission, but this is markedly improved today. Cultures, no growth so far. Continue to monitor. 3. Dyspnea. Patient with some dyspnea. Some new, although mild, crackles at the bases. Chest x- ray does not really show anything different and oxygenation remains stable, but checked a BNP which was significantly elevated. No previous diagnosis of heart failure. We will decrease IV fluids and obtain echocardiogram. 4. Hypertension. Stable on patient's home benazepril and amlodipine. Continue to monitor. 5. Parkinson's. Continue home Sinemet. 6. Frequent falls, deconditioning. Awaiting Physical Therapy recommendations. This has been a chronic and progressive problem with the patient likely related at least somewhat to her Parkinson's, although her current dehydration may have played a role. We will see how she does with PT. Depending on that, may need home health or inpatient rehab.
[2019-02-22] MEDS: DUONEB (A & A) INH SCH ×4 (03:04→21:15)
[2019-02-22] MEDS: NORCO-5 PO PRN ×2 (05:20→23:55)
[2019-02-22 07:09] LABS: BASO# 0.02 X1000 (0.0-0.2); BASO% 0.2 % (0.0-0.8); EOS# 0.49 X1000 (0.0-0.7); EOS% 4.8 % (0.0-10.0); HEMATOCRIT 31.9 % (37.0-47.0); HEMOGLOBIN 10.1 g/dL (12.0-16.0); IMM GRAN# 0.04 X1000 (0.0-0.04); IMM GRAN% 0.4 % (0.0-0.5); LYMPH# 1.02 X1000 (1.2-3.4); LYMPH% 9.9 % (20.5-51.1); MCH 29.4 PG (27-31); MCHC 31.7 g/dL (33-37); MONO# 0.68 X1000 (0.11-0.59); MONO% 6.6 % (1.7-9.3); MPV 10.3 FL (7.4-10.4); NEUT# 8.02 X1000 (1.4-6.5); NEUT% 78.1 % (42.2-75.2); PLT 180 X1000 (130-400); RBC 3.43 XMIL (4.2-5.4); RDW 14.1 % (11.5-14.5); WBC 10.27 X1000 (4.8-10.8)
[2019-02-22 07:36] LABS: ALB/GLOB RATIO 1.2; ALBUMIN 3.3 g/dL (3.5-5.0); CALCIUM 8.4 mg/dL (8.8-10.2); CREATININE 0.9 mg/dL (0.5-0.9); MAGNESIUM 1.6 mg/dL (1.5-2.7); TOTAL BILIRUBIN 0.52 mg/dL (0.20-1.00); TOTAL PROTEIN 6.1 g/dL (6.3-8.3)
[2019-02-22] MEDS ORDERED: POTASSIUM CHLORIDE 60 MEQ in NS 500 ML IV ONE (09:08)
[2019-02-22] MEDS: LOTREL 5/10 MG PO SCH (09:34)
[2019-02-22] MEDS: ROCEPHIN 1 GM in NS 50 ML IV SCH (09:34)
[2019-02-22] MEDS: DITROPAN PO SCH (09:34)
[2019-02-22] MEDS: ASPIRIN PO SCH (09:34)
[2019-02-22] MEDS: SINEMET 25/100 PO SCH ×3 (09:34→18:26)
[2019-02-22] MEDS: NS 1,000 ML IV SCH (16:11)
--- NOTE | 2019-02-22 16:31 | PROGRESS NOTE ---
DATE: 02/22/2019 INTERVAL HISTORY: Patient reports improvement in her muscle pain and stiffness. Working with physical therapy. No new complaints. No acute events overnight. REVIEW OF SYSTEMS: Twelve point review of systems negative except as per interval history. LABORATORY: WBC 10.2, hemoglobin 10.1, hematocrit 31.9, platelets 180,000. Sodium 141, potassium 3, bicarbonate 22, BUN 21, creatinine 0.9, glucose 145, CK 341, BNP 3290. IMAGING: Last chest x-ray with minimal pulmonary venous congestion and minimal atelectasis. No new consolidation. VITALS: T-max 99.3 degrees, pulse 96, respirations 17, blood pressure 125/47, O2 saturation 94% on 2 L by nasal cannula. PHYSICAL EXAMINATION: General: No acute distress. Chronically ill-appearing. Vitals: As above. HEENT: Normocephalic, atraumatic. Moist mucous membranes. No cervical adenopathy. Cardiovascular: Regular rate and rhythm. No murmurs noted. Pulmonary: Largely clear to auscultation. No further basilar crackles. Abdomen: Soft, nontender, nondistended. Bowel sounds positive. Extremities: Peripheral pulses intact. Trace edema unchanged. Neurologic: Cranial nerves grossly intact. Mild global weakness, stable. No focal deficits identified. Psychiatric: Normal mood and affect. Oriented x3. Cooperative. Skin: No new lesions noted. ASSESSMENT AND PLAN: 1. Mild rhabdomyolysis, dehydration. Patient down for unknown length of time before being found. Moderately elevated CK on admission. Improving with IV fluids. IV fluids were decreased yesterday because of elevated BNP and some mild respiratory difficulty, but CK has continued to improve. Monitor. 2. Urinary tract infection on Rocephin. Leukocytosis resolved. Afebrile. Cultures remain no growth. Will likely continue a short course of Rocephin. 3. Dyspnea, elevated BNP. Patient with some mild dyspnea, although oxygen remains stable after aggressive fluid resuscitation. BNP found to be mildly elevated. Fluids were decreased and patient no longer with any dyspnea. Did not have to give any diuretic. Obtaining echocardiogram to evaluate for previously undiagnosed congestive heart failure. 4. Hypertension, stable on patient's home medications. Monitor. 5. Parkinson's. Continue home Sinemet. 6. Frequent falls, deconditioning. Physical therapy working with patient. Likely discharge to detention facility tomorrow if other issues are stable.
--- NOTE | 2019-02-22 22:07 | ECHO REPORT ---
ORDER DATE: 02/21/2019 MEASUREMENTS: Septal thickness 0.9, left ventricular internal diameter diastole 4.9, posterior wall thickness 0.9. Left ventricular internal diameter in systole 2.9, aortic root 2.9, left atrium 4.3. SUMMARY: 1. Adequate quality study. 2. Aortic valve is trileaflet and opens normally on 2-dimensional images. Peak gradient across the aortic valve is 15 mmHg. There is very mild aortic regurgitation. Mitral, tricuspid, and pulmonic valves are without evidence of structural abnormality with very mild mitral regurgitation and mild tricuspid regurgitation. The estimated systolic PA pressure by Doppler is 70 to 75 mmHg, suggesting moderate to severe pulmonary hypertension. Aortic root is normal in size. 3. Normal left ventricular dimensions demonstrated. Estimated left ventricular ejection fraction appears to be at least 65%. No regional wall motion abnormalities are evident. Left atrium is mildly enlarged. Right atrium and right ventricle are normal in size with grossly preserved right ventricular systolic function. 4. No pericardial effusion. 5. Appearance of inferior vena cava suggests normal central venous pressure. CONCLUSIONS: 1. Very mild aortic regurgitation and very mild mitral regurgitation. 2. Mild tricuspid regurgitation with moderate to severe pulmonary hypertension by Doppler. 3. Estimated left ejection fraction at least 65%. 4. Mild left atrial enlargement. cc: Stu Sampson MD
[2019-02-23] MEDS: DUONEB (A & A) INH SCH ×2 (03:23→10:15)
[2019-02-23 07:11] LABS: BASO# 0.03 X1000 (0.0-0.2); BASO% 0.3 % (0.0-0.8); EOS# 0.94 X1000 (0.0-0.7); EOS% 10.8 % (0.0-10.0); HEMATOCRIT 33.8 % (37.0-47.0); HEMOGLOBIN 10.5 g/dL (12.0-16.0); IMM GRAN# 0.03 X1000 (0.0-0.04); IMM GRAN% 0.3 % (0.0-0.5); LYMPH# 1.37 X1000 (1.2-3.4); LYMPH% 15.7 % (20.5-51.1); MCH 29.2 PG (27-31); MCHC 31.1 g/dL (33-37); MCV 94.2 FL (81-99); MONO# 0.71 X1000 (0.11-0.59); MONO% 8.1 % (1.7-9.3); MPV 10.2 FL (7.4-10.4); NEUT# 5.64 X1000 (1.4-6.5); NEUT% 64.8 % (42.2-75.2); PLT 189 X1000 (130-400); RBC 3.59 XMIL (4.2-5.4); RDW 14.3 % (11.5-14.5); WBC 8.72 X1000 (4.8-10.8)
[2019-02-23 07:27] LABS: AGAP 10; ALB/GLOB RATIO 1.1; ALBUMIN 3.3 g/dL (3.5-5.0); ALKALINE PHOSPHATASE 63 U/L (32-104); BUN 17 mg/dL (8-22); CALCIUM 8.3 mg/dL (8.8-10.2); CHLORIDE 107 mmol/L (98-107); CK TOTAL 153 U/L (24-173); COSMO 280; CREATININE 0.8 mg/dL (0.5-0.9); ESTIMATED GFR > 60; GLUCOSE 117 mg/dL (70-104); GOT 11 U/L (10-30); GPT 8 U/L (10-36); MAGNESIUM 1.6 mg/dL (1.5-2.7); POTASSIUM 3.6 mmol/L (3.5-5.1); SODIUM 139 mmol/L (136-145); TCO2 22 mmol/L (25-35); TOTAL BILIRUBIN 0.58 mg/dL (0.20-1.00); TOTAL PROTEIN 6.3 g/dL (6.3-8.3)
[2019-02-23 08:56] LABS: HEMOGLOBIN A1C 5.7 % (4.8-6.0)
[2019-02-23 09:01] VITALS: BP 144/55
[2019-02-23] MEDS: DITROPAN PO SCH (09:01)
[2019-02-23] MEDS: LOTREL 5/10 MG PO SCH (09:01)
[2019-02-23] MEDS: ASPIRIN PO SCH (09:01)
[2019-02-23] MEDS: SINEMET 25/100 PO SCH (09:01)
[2019-02-23] MEDS: ROCEPHIN 1 GM in NS 50 ML IV SCH (09:01)
--- NOTE | 2019-02-23 09:17 | DISCHARGE SUMMARY ---
ADMISSION DATE: 02/20/2019 DISCHARGE DATE: ADDENDUM REPORT: PHYSICIAN FOLLOWUPS: Dr. Juan Carlos Hull DISCHARGE INSTRUCTIONS: If there are any more falls or any injuries from falls, she will need to seek medical attention. Please work with physical therapy to become a little more stronger. Take medications as prescribed to assist with your balance due to the Parkinson's. DISCHARGE DISPOSITION: [facility]. Dictated by CAIO Mora for Diogenes Horne MD cc: CAIO Mora
--- NOTE | 2019-02-23 09:21 | DISCHARGE SUMMARY ---
ADMISSION DATE: 02/20/2019 DISCHARGE DATE: 02/23/2019 ADMISSION DIAGNOSES: 1. Frequent falls secondary to Parkinson's and generalized weakness that has been progressive. 2. Mild rhabdomyolysis from the fall prior to admission. 3. Urinary tract infection. 4. Hypertension. 5. Parkinson's. 6. Urinary frequency. DISCHARGE DIAGNOSES: 1. Mild rhabdomyolysis with dehydration. 2. Urinary tract infection. 3. Dyspnea with elevated BNP. 4. Hypertension. 5. Parkinson's. 6. Frequent falls with deconditioning. 7. Pulmonary artery hypertension with a systolic of 70 to 75 mmHg. CONSULTATION: Social Service. SURGERIES/PROCEDURES: None. HOSPITAL COURSE: On 02/20/2019, Ms. Farida Veloz is an 88-year-old female who apparently has multiple frequent falls secondary to her Parkinson's. She has become more weak over the past month, and since 4 days prior to admission, she has had at least 4 falls with 2 of them being the day of admission. Apparently, the day before admission, she was walking outside, had a fall, and was in the rain for like 2-1/2 hours before [facility] found her. Secondary to this length of stay on the ground, she did have elevated CK levels revealing mild rhabdomyolysis. Urine was positive for urinary tract infection, and the only complaint she had was urinary frequency which she was actually on medication for already. Apparently, she lives at home alone. With the frequent falls, she needs to become stronger we need to hydrate her muscles. She received IV fluid hydration, physical therapy, antibiotic for the urinary tract infection, and she was continued on her routine medications for high blood pressure, Parkinson's, and urinary frequency. [place] [address], and today is down to 8000. On admission, her bilirubin was 1.81 which after fluid hydration, it was back to normal as well. Her CK originally was 1957 and went back down to 153. Apparently, she did have a little bit of shortness of breath while she was in the hospital, but she maintained her O2 saturations and ProBNP was up a little bit. The fluids that she was getting decreased, and the diuretics were never having to be given. An echo was obtained secondary to the elevated proBNP. This showed a normal ejection fraction. The left atrium was mildly enlarged. There is mild tricuspid regurgitation, moderate to severe pulmonary hypertension with systolic pressure of 70 to 75, which likely added to the shortness of breath. It was mild aortic regurgitation. She remained stable. She got physical therapy. Vitals remained stable. She will be discharged to rehab facility. DISCHARGE VITAL SIGNS: Temperature 98.2 degrees, heart rate 93, respiratory rate 16, blood pressure 124/46, and O2 saturation 98% I believe on 2 L nasal cannula. LABORATORY DATA: White blood cells 8000, hemoglobin 10, hematocrit 33 and platelet count 189,000. Sodium 139, potassium 3.6, BUN 17, creatinine 0.8, glucose 117, calcium 8.3, bilirubin 0.58, AST 11, ALT 8, CK 153, and albumin is 3.3. IMAGIN. On 02/20/2019, chest x-ray with no acute findings. 2. Head CT stable chronic appearing white matter changes, but no acute changes. 3. Lumbar spine x-ray advanced spondylosis. 4. On 02/21/2019, chest x-ray stable chest. There was mild pulmonary venous congestion. Minimal atelectasis and/or infiltrate at the lower lung zones. No new consolidation. 5. On 02/21/2019, echocardiogram showed ejection fraction of 65% with moderate to severe pulmonary hypertension. Systolic 70 to 75 mmHg. There is mild TR, mild AR, and mild MR, and mild left atrial enlargement. 6. EKG on admission, sinus rhythm with occasional PVCs. Rate was 91. QTc was 472. DISCHARGE DIET: Regular. DISCHARGE ACTIVITY: As tolerated and was with physical therapy. They recorded her strength as being 4/4 with plan recommendations for 5 to 7 times per week for at least 2 weeks of assisted device Physical Therapy. Plan to increase her short-term goal to increase her ambulation to 100 feet, oysterman goal to 150 feet. DISCHARGE MEDICATIONS: 1. Amlodipine benazepril 1 tablet p.o. daily. It is 10-40 mg. 2. Aspirin 81 mg p.o. daily. 3. Carbidopa/levodopa. We will do that t.i.d. 25/100. Antibiotic will be per Dr. Horne for the urinary tract infection although micro was negative so may not go on antibiotics. 4. Oxybutynin chloride 5 mg p.o. daily. 5. Tylenol 650 mg p.o. every 6 hours p.r.n. Dictated by CAIO Mora for Diogenes Horne MD cc: CAIO Mora agree with the above. the following is my own face to face assessment. rhabdo resolved with IVF but still quite weak. echo showing pulmonary htn but no gold CHF. she is likely to be sensitive to fluid overload though so I'd advise caution with any IVF in the future. parkinsons looks to be well controlled without significant rigidity but still pretty weak so she is going to rehab for a bit. MTDD
[2019-02-23] MEDS: NS 1,000 ML IV SCH (15:15)
== END 2019-02-23 15:16 | DRG 558 ==
LOC: ED 13:43 → EDIPHOLD 17:33 → 3N 19:44
PROVIDERS: ATTEND Internal Medicine

== ENCOUNTER 2019-06-19 08:51 | Inpatient (IN) ==
--- NOTE | 2019-06-19 09:15 | PROVIDER DOCUMENTATION ---
HPI-General Adult - General Chief Complaint: Fall Stated Complaint: fall last pm, on floor all night Time Seen by Provider: 06/19/19 08:52 Source: patient, family, EMS Allergies/Adverse Reactions: Patient Allergies Allergy/AdvReac Type Severity Reaction Status Date / Time No Known Allergies Allergy Verified 02/20/19 15:30 Home Medications: Home Medication List Medication Instructions Recorded Confirmed Last Taken Type Amlodipine Besylate/Benazepril 1 each PO DAILY 09/10/14 02/20/19 02/20/19 06:00 History [Amlodipine-Benazepril 10-40 mg] Aspirin 81 mg PO DAILY 09/20/18 02/20/19 02/20/19 06:00 History Oxybutynin Chloride 5 mg PO DAILY 02/20/19 02/20/19 02/20/19 06:00 History Acetaminophen [Tylenol] 650 mg PO Q6H PRN PRN tab 02/23/19 Unknown Rx Carbidopa/Levodopa 1 ea PO TID #1 tab 02/23/19 Unknown Rx [Carbidopa-Levodopa 25-100 Tab] - History of Present Illness -Gen Adult Nature of Presenting Problems: Presents to the with complaints of fall. Patient states that she got up to answer the phone and fell face first and was unable to ge tup and laid on her arms and face all night. She ahs a history of parkinsons and lives alone and her son lives next door to her and found her this morning. They called EMS who brought her in. Patient has no current complaints. Family states that she has been falling more frequently lately. Family at bedside did not see the event. Patient is a vague historian. Review of Systems - Adult - REVIEW OF SYSTEMS - ADULT ROS:: limited per condition (patient is vague historian, no family members witnessed event) Constitutional: reports: see HPI Eyes: reports: see HPI Ears, Nose, Mouth & Throat: reports: see HPI Cardiovascular: reports: see HPI Respiratory: reports: see HPI Gastrointestinal: reports: see HPI Genitourinary: reports: see HPI Musculoskeletal: reports: see HPI Integumentary: reports: see HPI Neurological: reports: see HPI Psychiatric: reports: see HPI Endocrine: reports: see HPI Hematologic/Lymphatic: reports: see HPI Allergic/Immunologic: reports: see HPI All Other Systems: Reviewed and Negative (Limited ROS) Past History - Adult - PAST MEDICAL HISTORY-ADULT Review of Records: reports: Old Records Reviewed Major Childhood Illnesses: reports: denies history Cardiovascular: reports: HTN Respiratory: reports: denies history Gastrointestinal: reports: denies history Obstetrical/Gynecological: reports: denies history Genitourinary: reports: denies history Musculoskeletal: reports: denies history Neurological: reports: Parkinson's Psychiatric: reports: depression Endocrine/Immune: reports: denies history Other Conditions: reports: denies history - PRIOR SURGERIES/PROCEDURES Surgical/Procedure History: reports: orthopedic (extremity), other - PRIOR HOSPITALIZATIONS Prior Hospitalizations: reports: for other non-related - IMMUNIZATION STATUS Childhood Immunizations: See Nurse Assessment Flu Vaccine: See Nurse Assessment - FAMILY HISTORY Family History: reviewed, not pertinent Physical Exam-General - PHYSICAL EXAM-ADULT Initial Vital Signs Reviewed: Yes - CONSTITUTIONAL General Appearance: alert, no apparent distress, other (dishelveled) - EYES Eyes: PERRL/EOMI - HEAD, EARS, NOSE, MOUTH & THROAT HENMT: normocephalic/atraumatic - NECK Neck: supple, normal inspection - RESPIRATORY Respiratory: chest non-tender, no respiratory distress, no accessory muscle use, decreased breath sounds (mild bilaterally) - CARDIOVASCULAR Cardiovascular: normal peripheral pulses, no murmur, tachycardia - GASTROINTESTINAL (ABDOMEN) Abdominal Exam: normal bowel sounds, non tender, soft - MUSCULOSKELETAL Back Exam: normal inspection, no vertebral tenderness Extremity: normal inspection, no pedal edema, pelvis stable - SKIN Integumentary: normal color, warm/dry - NEUROLOGIC Neurologic: grossly normal - PSYCHIATRIC Psych/Mental Status: normal mood/affect, other (answers most questions appropriately, appears somewhat confused) Progress - PLAN OF CARE/RESULTS Progress/Plan/Lab Results: Vital Signs - 8 hr 06/19/19 08:59 Temperature 98.6 F Pulse Rate 104 H Respiratory Rate 18 Blood Pressure 134/64 O2 Sat by Pulse Oximetry 99 Orders Category Date Time Status CHEST-PORTABLE [RAD] Stat Exams 06/19/19 08:[address] HEAD/C-SPINE W/O CONTRAST [CT] Stat Exams 06/19/19 08:[address] MAXILLOFACIAL(SINUS) W/O CO [CT] Stat Exams 06/19/19 08:55 Ordered Patient in rhabdo, elevated tropo and EKG showing either Afib vs NSR. I think I see P waves although the rhythm appears irregular I do not think this is Afib. There is a lot of artifact. She has no history of afib. Her UA is also + for UTI. Cr normal. No WBC. Patient falls frequently and will likely need placement. Spoke to [facility] oracle application architect for hospitalist who accepted patient for admission to Dr Hui. Further orders to be placed by their team. Result Diagrams: 06/19/19 10:17 06/19/19 10:17 - EKG 1 Time of EKG reading by physician:: 09:48 EKG Read and Signed by:: Monie Aldrich EKG Interpretation (*Must complete 3 of following elements*): Abnormal Rate: 101 Rhythm: NSR [place]: normal RI Interval: normal ST Wave: non-specific ST changes Comments: + artifact due to parkisons's hx, appears irregular but also appears NSR - XRAY 1 XRAY Study: Chest (EXAM: CHEST-PORTABLE HISTORY: fall TECHNIQUE: Single view COMPARISON: 02/21/2019 FINDINGS: The lungs are well expanded. No pneumothorax. The mediastinum is not widened. The heart is not enlarged. The vessels are not distended. There are no infiltrates. No effusion identified. Scattered granuloma. Old right rib fractures. IMPRESSION: No acute injury identified. Electronically signed by Tono Estrada 06/19/2019 9:41 AM) - CT/MRI 1 CT Study: Head (CT MAXILLOFACIAL(SINUS) W/O CO - 06/19/2019 INDICATION: fall, facial injury TECHNIQUE: COMPARISON: 02/20/[address] FINDINGS: The facial bones are intact and normally mineralized. The sinuses are clear. Soft tissues are clear. Orbits and orbital contents are normal. There is some scant mucous in the floor of the axillary sinuses bilaterally. IMPRESSION: Negative exam. Electronically signed by Jr Landers 06/19/2019 9:42 AM EXAM : CT HEAD/C-SPINE W/O CONTRAST HISTORY: fall, head injury TECHNIQUE: 1. CT head without intravenous contrast 2. CT cervical spine without intravenous contrast COMPARISON: Head compared to 04/22/2019 FINDINGS: Head: No parenchymal hemorrhage. No epidural or subdural hematoma. No subarachnoid hemorrhage. No mass identified on this noncontrasted exam. No hydrocephalus. No skull fracture. Cervical spine: There is reversal of normal curvature. 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 No precervical soft tissue swelling. No subluxation. 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 No acute fracture. IMPRESSION: Head: No hemorrhage. No injury. Cervical spine: No acute fracture. This exam was performed using automated exposure control, adjustment of mA or kV according to patient size, and/or use of iterative reconstruction technique. Electronically signed by Tono Estrada 06/19/2019 9:35 AM) - CONSULTS/PCP/HOSPITALIST Notification #1 *Consult/PCP/Hospitalist*: [facility] for hosp Time Discussed: 11:25 Consult Disposition: Admit (Dr Hui) Departure - Departure Date of Disposition Decision: 06/19/19 Time of Disposition Decision: 11:25 DIAGNOSIS: Frequent falls, Parkinson disease, Elevated troponin, Rhabdomyolysis, Urinary tract infection Disposition: ADMITTED INPATIENT 09 Certified Medical Emergency: Emergent Condition: Stable Referrals and Follow-Ups: Juan Carlos Hull MD [Primary Care Provider] - - Critical Care Note This patient required my direct & personal management of CC.: No Attestation - Physician/ FRANCO Attestation Patient care was provided by Advanced Practice Provider:: No The physician spent face to face time with patient:: Yes Advanced Practice Provider documentation review:: Supervising physician onsite and consulted in the evaluation and care of this patient. The physician did have a face to face encounter with the patient.
--- NOTE | 2019-06-19 09:38 | Diag Imaging Result Doc PS360 ---
EXAM : CT HEAD/C-SPINE W/O CONTRAST HISTORY: fall, head injury TECHNIQUE: 1. CT head without intravenous contrast 2. CT cervical spine without intravenous contrast COMPARISON: Head compared to 04/22/2019 FINDINGS: Head: No parenchymal hemorrhage. No epidural or subdural hematoma. No subarachnoid hemorrhage. No mass identified on this noncontrasted exam. No hydrocephalus. No skull fracture. Cervical spine: There is reversal of normal curvature. 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 No precervical soft tissue swelling. No subluxation. 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 No acute fracture. IMPRESSION: Head: No hemorrhage. No injury. Cervical spine: No acute fracture. This exam was performed using automated exposure control, adjustment of mA or kV according to patient size, and/or use of iterative reconstruction technique. Electronically signed by Tono Estrada 06/19/2019 9:35 AM
--- NOTE | 2019-06-19 09:43 | Diag Imaging Result Doc PS360 ---
EXAM: CHEST-PORTABLE HISTORY: fall TECHNIQUE: Single view COMPARISON: 02/21/2019 FINDINGS: The lungs are well expanded. No pneumothorax. The mediastinum is not widened. The heart is not enlarged. The vessels are not distended. There are no infiltrates. No effusion identified. Scattered granuloma. Old right rib fractures. IMPRESSION: No acute injury identified. Electronically signed by Tono Estrada 06/19/2019 9:41 AM
--- NOTE | 2019-06-19 09:44 | Diag Imaging Result Doc PS360 ---
CT MAXILLOFACIAL(SINUS) W/O CO - 06/19/2019 INDICATION: fall, facial injury TECHNIQUE: COMPARISON: 02/20/[address] FINDINGS: The facial bones are intact and normally mineralized. The sinuses are clear. Soft tissues are clear. Orbits and orbital contents are normal. There is some scant mucous in the floor of the axillary sinuses bilaterally. IMPRESSION: Negative exam. Electronically signed by Jr Landers 06/19/2019 9:42 AM
--- NOTE | 2019-06-19 10:05 | EKG Report ---
Test Performed on : 06/19/2019 09:46:28 AM Test Reason : fall Blood Pressure : / mmHG Vent. Rate : 101 BPM Atrial Rate : 141 BPM P-R Int : 000 ms QRS Dur : 080 ms QT Int : 328 ms P-R-T Axes : 000 -02 022 degrees QTc Int : 425 ms Atrial fibrillation. with rapid ventricular response. Marked ST abnormality, possible inferior subendocardial injury Abnormal ECG When compared with ECG of 20-FEB-2019 14:14, Atrial fibrillation. has replaced Sinus rhythm. Questionable change in QRS axis ST now depressed in Inferior leads ST now depressed in Anterolateral leads Nonspecific T wave abnormality now evident in Anterolateral leads Unconfirmed Result
[2019-06-19 10:37] LABS: HEMATOCRIT 38.8 % (37.0-47.0); HEMOGLOBIN 12.5 g/dL (12.0-16.0); LYMPH# 0.79 X1000 (1.2-3.4); LYMPH% 9.1 % (20.5-51.1); MCH 28.7 PG (27-31); MCHC 32.2 g/dL (33-37); MONO# 0.87 X1000 (0.11-0.59); MPV 10.4 FL (7.4-10.4); NEUT# 7.02 X1000 (1.4-6.5); NEUT% 80.9 % (42.2-75.2); PLT 231 X1000 (130-400); RBC 4.36 XMIL (4.2-5.4); RDW 14.2 % (11.5-14.5); WBC 8.68 X1000 (4.8-10.8)
[2019-06-19 10:48] LABS: INR 1.03; PROTIME 13.6 Seconds (11.0-16.0)
[2019-06-19 10:49] LABS: PTT 28.2 Seconds (22.3-41.8)
[2019-06-19 10:56] LABS: URINE SOURCE CLEAN CATCH
[2019-06-19 10:59] LABS: ALB/GLOB RATIO 1.5; ALBUMIN 3.8 g/dL (3.5-5.0); CALCIUM 8.8 mg/dL (8.8-10.2); TOTAL BILIRUBIN 0.57 mg/dL (0.20-1.00); TOTAL PROTEIN 6.4 g/dL (6.3-8.3)
[2019-06-19 11:06] LABS: BILIRUBIN URINE NEGATIVE (NEGATIVE); BLOOD URINE MODERATE (NEGATIVE); COLOR YELLOW; GLUCOSE URINE NEGATIVE (NEGATIVE); KETONE URINE 40 mg/dL (NEGATIVE); LEUKOCYTES URINE NEGATIVE (NEGATIVE); NITRITE URINE POSITIVE (NEGATIVE); PH URINE 5.5; PROTEIN URINE 50 mg/dL (NEGATIVE); SP GRAVITY URINE 1.026; TURBIDITY URINE HAZY (CLEAR); UR EPITHELIAL CELLS <10 /HPF (<10); URINE BACTERIA 4+ /HPF; URINE RBC 20-40 /HPF (<10); URINE WBC <10 /HPF (<10); UROBILINOGEN URINE NORMAL (NORMAL)
[2019-06-19] MEDS ORDERED: NS 1,000 ML IV ONE ×3 (11:09)
[2019-06-19] MEDS ORDERED: LOPRESSOR IV ONE (11:22)
[2019-06-19] MEDS ORDERED: ROCEPHIN 1 GM in NS 50 ML IV SCH (11:30)
[2019-06-19 11:33] LABS: UR AMPHETAMINES QUAL NONE DETECTED (NONE DETECT); UR BARBITUATES QUAL NONE DETECTED (NONE DETECT); UR BENZODIAZEPIN QUAL NONE DETECTED (NONE DETECT); UR CANNABINOIDS QUAL NONE DETECTED (NONE DETECT); UR COCAINE QUAL NONE DETECTED (NONE DETECT); UR METHADONE QUAL NONE DETECTED (NONE DETECT); UR OPIATES QUAL NONE DETECTED (NONE DETECT); UR OXYCODONE QUAL NONE DETECTED (NONE DETECT); UR PCP QUAL NONE DETECTED (NONE DETECT)
[2019-06-19] MEDS ORDERED: ZOFRAN IV PRN (12:09)
[2019-06-19] MEDS ORDERED: TYLENOL PO PRN (12:09)
[2019-06-19] MEDS ORDERED: NS NEB INH SCH (13:00)
[2019-06-19 13:46] LABS: CK INDEX 0.9 (0.0-2.5); CK-MB 50.27 ng/mL (0.0-5.0)
--- NOTE | 2019-06-19 14:06 | HISTORY AND PHYSICAL ---
PRIMARY CARE PROVIDER: Dr. Hull. NEUROLOGIST: Dr. Cullen. CHIEF COMPLAINT: Fall. HISTORY OF PRESENT ILLNESS: Ms Veloz is an 88-year-old female who carries a past medical history of hypertension, Parkinson disease, multiple falls, depression, frequent urinary tract infections, vulvar cancer and removal, who was last admitted to our service back in February 2019 for falls and rhabdomyolysis. She comes to the ED today after she suffered a fall last night around 5:30 or 6 p.m. as she was going to bed. She does not remember falling or the events that led up to her fall. She fell face forward, was unable to move off her arms until her son found her this a.m. Workup in the ED revealed rhabdomyolysis, elevated troponin, questionable atrial fibrillation with rapid ventricular response. On the EKG, there was a lot artifact. Son also reported her seeing and talking to some people who not here this week, but he does report that is usual for her with a urinary tract infection that she also currently has. We will continue to aggressively IV hydrate her. She has received a 2 L bolus. We will continue to trend her CK. She is not complaining of any chest pain. However, we will continue to trend her cardiac enzymes. We will do a limited echo to assess her EF and valvular function. We did briefly speak about going to rehab again versus a long-term care facility. It is the patient and son's wishes that she be a full code. PAST MEDICAL HISTORY: Per HPI. PAST SURGICAL HISTORY: Vulva removed, bilateral wrist surgery, neck surgery x2, right shoulder fracture surgery, bilateral cataracts. SOCIAL HISTORY: She does live at home alone. Son lives next door. She uses a walking stick, cane and a walker, power wheelchair, but does not use it that often. Family visits her frequently. She has Meals on Wheels. She has recently done 21 days in rehab and has home health coming out daily. However, her son thinks that her home health may have ran out. FAMILY HISTORY: Father with heart disease. ALLERGIES: No known drug allergies. MEDICATIONS: Home medications are being compiled. REVIEW OF SYSTEMS: Twelve-point review of systems complete and negative except for those mentioned in the HPI. Patient does not have any complaint. PHYSICAL EXAMINATION: VITAL SIGNS: Temperature is 98.6 degrees, heart rate 93, respirations 20, blood pressure 143/72, O2 is 95% on room air. GENERAL: Ms. Veloz is a disheveled-looking, 88-year-old female, lying in the bed in no acute distress. HEENT: Atraumatic, normocephalic. PERRL. NECK: Supple. Trachea midline. CARDIOVASCULAR: S1, S2 appreciated. No murmurs, gallops, rubs noted. RESPIRATORY: Lung sounds, could appreciate some expiratory wheezes in the upper bases. The patient has no history of COPD. GASTROINTESTINAL: Soft, nontender, nondistended. Positive bowel sounds 4 quads. LOWER EXTREMITIES: Negative for edema. SKIN: Upper extremities various stages of bruising as well as to the face. NEUROLOGIC: She is awake, she is alert, she is oriented. Follows commands. Moves all extremities. No focal deficits noted. DIAGNOSTIC DATA: Chest x-ray shows old right rib fractures, but no acute injury. Head and cervical spine CT, no hemorrhage, no injury, no acute fractures. Maxillofacial CT was negative. EKG, atrial fibrillation with rapid ventricular response, marked ST abnormality, possible inferior subendocardial injury at 101 beats per minute. LABORATORY DATA: White count 8, hemoglobin and hematocrit 12 and 38, platelet count is 231,000. Sodium 140, potassium 4, BUN 44, creatinine 1.0, blood glucose 104. AST 100. CK is 6346. Troponin is 101. Plasma lactate 1.9. Urinalysis, bacteria +4, positive for nitrites. Toxicology screen is negative. ASSESSMENT AND PLAN: 1. Frequent falls secondary to Parkinson disease and generalized weakness that continues. (various stages of bruises and skin tears noted on the body) The patient will need continued physical therapy. We did briefly discuss rehab versus intermodal customer service care. Patient and son both admit that she falls daily. She is afraid to go outside for fear of falling and no one being around. We will get Credit Administrator involved. We will put her on fall precautions. 2. Rhabdomyolysis secondary to her fall. She was given a 2 L bolus. We will continue with aggressive IV hydration. We will do serial CKs on a daily basis. 3. Urinary tract infection. Continue IV Rocephin. 4. Questionable atrial fibrillation with rapid ventricular response. Patient does not have a history. We will check a limited echocardiogram. We will recheck her EKG. She was given 5 mg of IV metoprolol. She is not complaining of any palpitations or chest pain. 5. Elevated troponin. Again, not complaining of any chest pain. We will continue to trend. We will involve Cardiology if needed. 6. Mild wheezing noted on exam will add Xoponex chest xray does not show any pneumonia no history of COPD currently on abx for UTI will recheck chest X-ray in am. 7. Known Parkinson disease. Will continue on her home medications. 8. Hypertension. 9. Code status. Full code per patient and son at bedside. Further recommendations to follow physician evaluation, laboratory and diagnostic data. Dictated by CAIO Boyce for José Miguel Hui MD cc: MD Juan Carlos Estrella MD Eston G. Norwood III, MD MTDD
[2019-06-19] MEDS: SINEMET 25/100 PO SCH ×2 (14:34→18:20)
[2019-06-19 15:50] LABS: CK INDEX 0.8 (0.0-2.5); CK-MB 50.54 ng/mL (0.0-5.0)
--- NOTE | 2019-06-19 15:51 | EKG Report ---
Test Performed on : 06/19/2019 3:31:18 PM Test Reason : follow up Blood Pressure : / mmHG Vent. Rate : 076 BPM Atrial Rate : 062 BPM P-R Int : 000 ms QRS Dur : 090 ms QT Int : 392 ms P-R-T Axes : 000 029 049 degrees QTc Int : 441 ms Atrial fibrillation. Nonspecific ST abnormality Abnormal ECG When compared with ECG of 19-JUN-2019 09:46, (Unconfirmed) T wave inversion no longer evident in Inferior leads Nonspecific T wave abnormality, improved in Anterolateral leads Confirmed by Mikel DICKERSON, Brooke Ortez ([id number]) on 06/20/2019 12:15:24 PM
[2019-06-19] MEDS ORDERED: NS 1,000 ML IV SCH (19:00)
--- NOTE | 2019-06-19 20:37 | ECHO REPORT ---
ORDER DATE: 06/19/2019 MEASUREMENTS: Septal thickness 0.8, left ventricular internal diameter end-diastole 5.2, posterior wall thickness 0.7, aortic root 3.1, left atrium 4.1. SUMMARY: 1. Fair quality study. 2. Aortic valve is trileaflet and opens normally on 2-dimensional images. The peak gradient across aortic valve is approximately 10 mmHg. There is mild aortic regurgitation. Mitral, tricuspid, and pulmonic valves are without evidence of structural abnormality with mild-to- moderate mitral regurgitation, ickw-ix-cgtkvlna tricuspid regurgitation, and mild pulmonic insufficiency. The estimated systolic PA pressure by Doppler is 65 mmHg suggesting moderate pulmonary hypertension. Aortic root is normal in size. 3. Normal left ventricular dimensions demonstrated. The estimated left ventricular ejection fraction appears to be at least 70%. No regional wall motion abnormalities evident. Mild left atrial enlargement is demonstrated. The right atrium is mildly enlarged. The right ventricle is normal in size with grossly preserved right ventricular systolic function. 4. No pericardial effusion. 5. Appearance of inferior vena cava suggests elevated central venous pressure. 6. Atrial fibrillation during study. CONCLUSIONS: 1. Mild aortic regurgitation. 2. Ntcb-ia-kldeloic mitral regurgitation. 3. Azdx-wm-cpscccfk tricuspid regurgitation with moderate pulmonary hypertension by Doppler. 4. Estimated left ventricular ejection fraction at least 70%. 5. Mild biatrial enlargement. 6. Elevated central venous pressure suggested. 7. Atrial fibrillation. cc: Stu Sampson MD
--- NOTE | 2019-06-19 20:37 | HISTORY AND PHYSICAL ---
ADDENDUM: I have seen and examined Ms. Veloz today. Ms. Veloz is an 88-year-old female who was brought into the emergency room after the son found her face down. Apparently was there for a couple hours from last night. Ms. Veloz, herself, does not really remember. She tells me today that she was on the bed, when it is clearly stated in the part of her history, that she was found on the floor. At any case, she has been found to be in atrial fibrillation on presentation and she is in rhabdomyolysis. She denies any chest pain. OBJECTIVE: Vital signs: Blood pressure is 129/69, pulse of 83, respiration is 19, temperature is 98.2 degrees. General: Ms. Veloz is an 88-year-old female. She was in bed. She did not seem to be in any distress. HEENT: Mucosa is pink and moist. Anicteric. Acyanotic. Neck: Supple. Chest: Air entry is bilaterally reduced. There is diffuse end-expiratory wheezing and rhonchi in posterior lung mckeon. Cardiovascular: Regular rate and rhythm. Abdomen: Soft. Extremities: No pedal edema. TRANSPORTATION MODELER: Patient is awake, alert. Follows command. She does have gaps in the memory. LABORATORY DATA: Has been reviewed. CBC is unremarkable. Chemistry also shows creatinine 1.0. AST is minimally elevated. The CK is also elevated. Troponin minimally elevated. Urine toxicology is unremarkable. The urine culture shows positive nitrates. ASSESSMENT: 1. Generalized weakness with multiple falls. 2. Paroxysmal atrial fibrillation. The patient seems to have had atrial fibrillation in the past as well. Electrocardiograms in the past used to showed that. She is not on any medication. However, we will start her on metoprolol. 3. Abnormal urine urinalysis with positive nitrate, questionable for urinary tract infection. We will get a urine culture. 4. Bronchospasm concerning for pneumonia/aspiration. The patient has been started on antibiotics and we will get a CT scan to have a better view of the lung anatomy. 5. The mildly elevated troponins. Patient is currently asymptomatic, presumably demand mismatch from tachyarrhythmia. 6. Rhabdomyolysis. Patient is on IV fluids. 7. History of Parkinson disease. The patient is on levodopa carbidopa. We will get physical therapy to evaluate her. Please refer to the details of the history and physical that has been dictated by the SHIPYARD SUPERVISOR. I have discussed the plan with her. cc: José Miguel Hui MD
--- NOTE | 2019-06-19 20:45 | Diag Imaging Result Doc PS360 ---
EXAM: CT THORAX W/O CONTRAST HISTORY: SOB TECHNIQUE: CT chest without intravenous contrast COMPARISON: 08/10/2018 FINDINGS: No pleural effusions. The heart remains enlarged. Severe atherosclerosis. Trace pericardial fluid. There is central vascular prominence. Mildly prominent mediastinal nodes. There are scattered granuloma. There are increased interstitial markings bilaterally. Small nodular densities in the right lower lobe. These are more pronounced in the right lung than the left. These are much less pronounced than on the prior study. IMPRESSION: 1.Cardiomegaly with central vascular distention 2.Severe atherosclerosis 3.Small recurrent infiltrates versus fibrosis 4.Development of small nodules or nodular infiltrates in the right lower lobe This exam was performed using automated exposure control, adjustment of mA or kV according to patient size, and/or use of iterative reconstruction technique. Electronically signed by Tono Estrada 06/19/2019 8:43 PM
[2019-06-19] MEDS: LOPRESSOR PO SCH (21:02)
[2019-06-20 06:40] LABS: BASO# 0.01 X1000 (0.0-0.2); BASO% 0.2 % (0.0-0.8); EOS# 0.01 X1000 (0.0-0.7); EOS% 0.2 % (0.0-10.0); HEMATOCRIT 33.5 % (37.0-47.0); HEMOGLOBIN 10.4 g/dL (12.0-16.0); LYMPH# 0.81 X1000 (1.2-3.4); LYMPH% 16.1 % (20.5-51.1); MCH 28.1 PG (27-31); MCV 90.5 FL (81-99); MONO# 0.46 X1000 (0.11-0.59); MONO% 9.1 % (1.7-9.3); MPV 10.4 FL (7.4-10.4); NEUT# 3.75 X1000 (1.4-6.5); NEUT% 74.4 % (42.2-75.2); PLT 217 X1000 (130-400); RDW 14.4 % (11.5-14.5); WBC 5.04 X1000 (4.8-10.8)
--- NOTE | 2019-06-20 07:27 | EKG Report ---
Test Performed on : 06/20/2019 06:53:51 AM Test Reason : afib Blood Pressure : / mmHG Vent. Rate : 093 BPM Atrial Rate : 078 BPM P-R Int : 000 ms QRS Dur : 094 ms QT Int : 372 ms P-R-T Axes : 000 012 033 degrees QTc Int : 462 ms Atrial fibrillation. Nonspecific ST and T wave abnormality Abnormal ECG When compared with ECG of 19-JUN-2019 15:31, (Unconfirmed) No significant change was found Confirmed by Brooke Morin MD ([id number]) on 06/20/2019 12:16:06 PM
[2019-06-20 07:40] LABS: ALB/GLOB RATIO 1.2; ALBUMIN 2.9 g/dL (3.5-5.0); CALCIUM 8.1 mg/dL (8.8-10.2); CREATININE 0.9 mg/dL (0.5-0.9); POTASSIUM 3.6 mmol/L (3.5-5.1); TOTAL BILIRUBIN 0.34 mg/dL (0.20-1.00); TOTAL PROTEIN 5.3 g/dL (6.3-8.3)
[2019-06-20] MEDS: ZITHROMAX 500 MG/NS 500 MG/250 ML IVPB IV SCH (08:16)
[2019-06-20] MEDS: LOPRESSOR PO SCH ×2 (08:16→20:32)
[2019-06-20] MEDS: SINEMET 25/100 PO SCH ×3 (08:17→20:32)
[2019-06-20] MEDS: TAMIFLU PO SCH ×2 (08:17→20:32)
--- NOTE | 2019-06-20 14:07 | PROGRESS NOTE ---
DATE: 06/20/2019 SUBJECTIVE: This morning, Ms. Veloz refers to be doing quite well. The son was at the bedside at the time of the encounter. According to the son, Ms. Veloz has been falling multiple times recently. OBJECTIVE: Vital Signs: Blood pressure is 144/65, pulse of 80, respirations 20, temperature is 98 degrees. General: Ms. Veloz is an 88-year-old, elderly, female. She is in bed. She does not seem to be in any cardiopulmonary distress. HEENT: Mucosa is pink and moist. Anicteric. Acyanotic. Neck: Supple. Chest: Air entry was bilaterally reduced. There are still diffuse end expiratory wheezing with some crackles. Cardiovascular: Regular rate and rhythm. No murmurs, no rubs, no gallops. GI: Abdomen was soft. There is some mild excoriation in the lower abdomen. Extremities: No pedal edema. POLICE AND FIRE DISPATCHER: The patient is awake, alert. Follows basic commands. LABORATORY DATA: WBC is 5.04, hemoglobin is 10.4, platelet count of 217,000. Chemistry is also reviewed. Creatinine is down to 0.9. Creatine kinase is also down to 3420. MICROBIOLOGY: Urine culture is growing gram-negative chase. The patient's influenza screening is also positive for A. IMAGING: A CT scan of the chest, which was done yesterday shows some cardiomegaly with central venous congestion, severe atherosclerosis, a small recurrent infiltrate versus fibrosis, and there was the development of nodular infiltrates in the right lower lobe. ASSESSMENT: 1. Generalized weakness with multiple falls at home. Will get Physical Therapy to evaluate the patient. 2. Paroxysmal atrial fibrillation. The patient remains in atrial fibrillation, but the rate is better controlled. 3. Gram-negative chase urinary tract infection. 4. Right lower lobe infiltrate associated with bronchospasm, concerning for bacterial pneumonia versus aspiration pneumonitis. The patient is on antimicrobial therapy. 5. Mildly elevated troponin, presumably from demand mismatch. 6. Rhabdomyolysis. CK is trending down. 7. History of Parkinson's disease. The patient is on carbidopa/levodopa. 8. Influenza A positive. The patient is on Tamiflu for 5 days. Disposition. We are going to continue managing the patient's current comorbidities, and get Physical Therapy to evaluate her. Will also get Social Work and Case Management to evaluate her for possible rehab placement. cc: José Miguel Hui MD [facility]
[2019-06-20] MEDS: ROCEPHIN 1 GM in NS 50 ML IV SCH (16:21)
[2019-06-20] MEDS: XOPENEX NEB INH PRN (17:41)
[2019-06-21 06:33] LABS: ALBUMIN 3.1 g/dL (3.5-5.0); CREATININE 0.9 mg/dL (0.5-0.9); PHOSPHORUS 2.8 mg/dL (2.7-4.5); POTASSIUM 3.7 mmol/L (3.5-5.1)
[2019-06-21] MEDS: VITAMIN D PO SCH (09:09)
[2019-06-21] MEDS: LOPRESSOR PO SCH ×2 (09:10→20:49)
[2019-06-21] MEDS: TAMIFLU PO SCH ×2 (09:10→20:50)
[2019-06-21] MEDS: SINEMET 25/100 PO SCH ×3 (09:10→20:50)
[2019-06-21] MEDS: ZITHROMAX 500 MG/NS 500 MG/250 ML IVPB IV SCH (09:10)
[2019-06-21] MEDS: XOPENEX NEB INH PRN (13:37)
--- NOTE | 2019-06-21 16:39 | PROGRESS NOTE ---
DATE: 06/21/2019 SUBJECTIVE: I have seen and examined Ms. Veloz today. She says she was feeling a lot better. Denies any new complaints. OBJECTIVE: Vital Signs: Blood pressure is 114/55, pulse of 73, respirations 14, temperature 97.6 degrees. General: Ms. Veloz is an 88-year-old elderly female. She was in bed. No distress. Mucosa is pink and moist. Anicteric. Acyanotic. Neck: Supple. Chest: There was good air entry bilateral, but there is still some expiratory diffuse wheezing, and crackles. Cardiovascular: Irregularly irregular. No murmurs, no rubs, no gallops. Abdomen: Soft. Some excoriations to the lower abdomen which looks a lot better today. Extremities: No pedal edema. Central Nervous System: Patient is awake. Follows basic commands. LABORATORY DATA: Chemistry is reviewed today, much better. Creatine kinase is down to 1399. IMAGING STUDIES: No imaging studies today. ASSESSMENT: 1. Generalized weakness with multiple falls at home. Patient is being evaluated by Physical therapy. 2. Paroxysmal atrial fibrillation. Patient remains in atrial fibrillation but rate is better controlled. 3. Right lower lobe infiltrate associated with bronchospasm concerning for pneumonia versus aspiration pneumonitis. Patient is on antimicrobial therapy. She sounds a lot better. 4. Escherichia coli urinary tract infection. Patient is on antimicrobial therapy. 5. Mild rhabdomyolysis improving. 6. History of Parkinson disease. Patient is on carbidopa/levodopa. 7. Influenza A positive. Patient is on Tamiflu for 5 days. 8. Mildly elevated troponin presumably from demand mismatch. The patient denies any chest pain. 9. Disposition. Ms. Veloz is pending rehab placement. cc: José Miguel Hui MD
[2019-06-21] MEDS: ROCEPHIN 1 GM in NS 50 ML IV SCH (17:03)
--- NOTE | 2019-06-21 18:04 | Diag Imaging Result Doc PS360 ---
EXAM: CHEST-PORTABLE HISTORY: SOB TECHNIQUE: Single view COMPARISON: 06/19/2019 FINDINGS: There is mild pulmonary edema. No pleural effusions identified. The heart is mildly enlarged. There are infiltrates in the mid and lower right lung. Scattered granuloma. IMPRESSION: Worsening mild edema and infiltrates Electronically signed by Tono Estrada 06/21/2019 6:02 PM
[2019-06-21] MEDS ORDERED: LASIX IV ONE (18:31)
[2019-06-22 06:41] LABS: HEMATOCRIT 38.2 % (37.0-47.0); HEMOGLOBIN 11.7 g/dL (12.0-16.0); MCHC 30.6 g/dL (33-37); MCV 94.8 FL (81-99); MPV 10.4 FL (7.4-10.4); RBC 4.03 XMIL (4.2-5.4); RDW 14.7 % (11.5-14.5); WBC 5.43 X1000 (4.8-10.8)
[2019-06-22 07:20] LABS: AGAP 12; ALBUMIN 3.1 g/dL (3.5-5.0); BUN 23 mg/dL (8-22); CALCIUM 8.1 mg/dL (8.8-10.2); CHLORIDE 104 mmol/L (98-107); COSMO 288; CREATININE 0.8 mg/dL (0.5-0.9); ESTIMATED GFR > 60; GLUCOSE 114 mg/dL (70-104); PHOSPHORUS 2.9 mg/dL (2.7-4.5); POTASSIUM 3.4 mmol/L (3.5-5.1); SODIUM 142 mmol/L (136-145); TCO2 26 mmol/L (25-35)
--- NOTE | 2019-06-22 07:22 | Diag Imaging Result Doc PS360 ---
EXAM: CHEST-PORTABLE HISTORY: dyspnea TECHNIQUE: Single view COMPARISON: 06/21/2019 FINDINGS: The lungs are well expanded. No cardiomegaly. Near-complete clearing of the prior infiltrates. There are likely tiny effusions. There are scattered granuloma. IMPRESSION: Interval improvement Electronically signed by Tono Estrada 06/22/2019 7:20 AM
[2019-06-22] MEDS: LOPRESSOR PO SCH (09:09)
[2019-06-22] MEDS: VITAMIN D PO SCH (09:09)
[2019-06-22] MEDS: ZITHROMAX 500 MG/NS 500 MG/250 ML IVPB IV SCH (09:10)
[2019-06-22] MEDS: SINEMET 25/100 PO SCH (09:10)
[2019-06-22] MEDS: TAMIFLU PO SCH (09:10)
--- NOTE | 2019-06-22 11:46 | DISCHARGE SUMMARY ---
ADMISSION DATE: 06/19/2019 DISCHARGE DATE: 06/22/2019 CONSULTATION DURING THIS ADMISSION: None. INVESTIGATIVE PROCEDURES DURING THIS ADMISSION: 1. A chest x-ray showed no acute disease. 2. CT scan of the head and cervical spine showed no acute fracture or pathology. 3. Maxillofacial x-ray was negative. 4. Chest CT scan shows cardiomegaly with central vascular congestion, severe atherosclerosis, recurrent infiltrate versus fibrosis development of right lower lobe infiltrate. 5. A chest x-ray yesterday showed worsening pulmonary edema. 6. A repeat x-ray this morning shows near-complete drying of the prior infiltrates, interval improvement. DIAGNOSES AT THE TIME OF ADMISSION: 1. Frequent falls. 2. Rhabdomyolysis. 3. Urinary tract infection. 4. Questionable atrial fibrillation with rapid ventricular response. 5. Elevated troponin. DIAGNOSES AT THE TIME OF DISCHARGE: 1. Generalized weakness with multiple falls at home. 2. History of paroxysmal atrial fibrillation with rapid ventricular response on presentation. Better control. 3. Right lower lobe infiltrate associated with bronchospasm concerning for pneumonia versus aspiration pneumonitis. The patient is on antimicrobial therapy. She seems to be doing a lot better. 4. Escherichia coli urinary tract infection. 5. Mild rhabdomyolysis. 6. History of Parkinson disease. 7. Influenza A positive. 8. Mildly elevated troponin on presentation secondary to demand mismatch. 9. A limited echocardiogram which was done showed ejection fraction of 70%. No regional wall abnormalities. DISCHARGE MEDICATIONS: 1. Amlodipine/benazepril. 2. Aspirin 81 mg p.o. daily. 3. Fluoxetine 20 mg p.o. daily. 4. Carbidopa/levodopa 25/100. 5. Cholecalciferol 800 mg p.o. daily. 6. Metoprolol 12.5 b.i.d. 7. Tamiflu 75 mg b.i.d. 8. Levofloxacin 500 b.i.d. 9. The patient is not on anticoagulant for atrial fibrillation because of history of multiple falls. HISTORY OF PRESENTING COMPLAINT: Ms. Veloz is an 88-year-old elderly female who has multiple comorbidities, normally follows up with Dr. Hull and Dr. Cullen as her neurologist, came to the emergency room after the son found her on the floor of her bedroom presumably last seen was the evening of the day prior. Upon presenting to the emergency room, she was evaluated including labs and imaging studies and was found to be in rhabdomyolysis, was also noted to be in atrial fibrillation with rapid ventricular response. She was subsequently admitted for further medical care. HOSPITAL COURSE: Ms. Veloz was admitted to the [facility]. She was found to be in to be positive for influenza A and was treated with Tamiflu. She is going to complete a total of 5 days. She was also found to have some infiltrate in the basal lungs suggestive of possible pneumonia versus aspiration pneumonitis. She has been started on antimicrobial therapy. Ms. Veloz was also found to have urinary tract infection which grew Escherichia coli as well as some excoriation on the lower abdomen which has also grown Escherichia coli. We have adjusted her medication to take Levaquin for a total of 5 more days. During the hospital course Ms. Veloz was initially fluid resuscitated because of the rhabdomyolysis. It, however, appeared that she might have being over hydrated and she developed some congestion yesterday. She got a dose of Lasix. This morning she feels a whole lot better and repeat chest x-ray shows improvement in the lungs. Her creatinine which was 1.0 on admission after hydration dropped down to 0.8. This morning, Ms. Veloz refers to be doing a whole lot better. She was being helped to sit up in a chair. She does not have any more shortness of breath. No coughing. She feels slightly stronger. She was evaluated by physical therapy yesterday. She did 2 feet with moderate assist. DISPOSITION: She is being discharged to rehab to continue with her physical buddhism. DISCHARGE INSTRUCTIONS: All the discharge instructions have been discussed with her. She voiced understanding. TIME SPENT FOR DISCHARGE: 35 minutes. cc: MD Juan Carlos Estrella MD Eston G. Norwood III, MD
[2019-06-22 11:54] VITALS: BP 89/43
== END 2019-06-22 13:45 | DRG 564 ==
LOC: SUPCPDRO → ED 08:51 → EDIPHOLD 11:56 → 2N 22:13
PROVIDERS: ATTEND Internal Medicine